=== PATIENT | female | born 1985 | race Caucasian/White ===

== ENCOUNTER 2020-03-17 15:30 | Outpatient (REF) | payer MEDICAID, SELFPAY | END 2020-03-17 15:31 | disposition home or self-care (01) | LOC: HO.LAB 15:30 | PROVIDERS: PCP Internal Medicine; Visit Provider Internal Medicine | DX: Z20.828 Contact with and (suspected) exposure to other viral communicable diseases (principal) | CPT/HCPCS: C9803; U0003 ==

== ENCOUNTER 2020-04-11 14:16 | Emergency (ER) | payer MEDICAID, OTHER, SELFPAY ==
[2020-04-11 14:56] VITALS: BP 150/94; PULSE 73; RESP 18; TEMP 37.2; O2SAT 99; BMI 40.0
--- NOTE | 2020-04-11 16:26 | ED.FALL ---
HPI - Fall General Chief Complaint: Fall Stated Complaint: fall x 1 day - neck pain Time Seen by Provider: 04/11/20 16:26 History of Present Illness HPI Narrative: Patient complains of bilateral shoulder pain, upper back pain and bilateral neck pain after a fall yesterday where she slipped on the wet floor in a store and fell forward, no loss of consciousness no numbness no weakness no fainting no paresthesias no tingling Related Data Previous Rx's Medication Instructions Recorded ibuprofen 600 mg PO Q6H PRN #20 tab 04/11/20 Allergies Allergy/AdvReac Type Severity Reaction Status Date / Time No Known Allergies Allergy Unverified 01/10/20 19:33 [No Known Allergies*] Review of Systems Review of Systems: No dizziness no weakness no headache no loss of consciousness no numbness no weakness no paresthesias no chest pain no abdominal pain no shortness of breath Yes all other systems are reviewed and are negative [facility] Past Medical History Source: nursing notes reviewed Medical History (Updated 04/11/20 @ 16:35 by MEHREEN Brooke) HTN (hypertension) Social History Social History Alcohol intake: unknown Smoking Status: Unknown if ever smoked Use of substances other than those prescribed or required for medical reasons: Unknown Advance Directives: No Advance Directives Information Provided: Yes Physical Exam Vital Signs: Vital Signs: Last Vital Signs Temp 98.9 F 04/11/20 14:56 Pulse 73 04/11/20 14:56 Resp 18 04/11/20 14:56 BP 150/94 H 04/11/20 14:56 Pulse Ox 99 04/11/20 14:56 Body Mass Index 40.0 General appearance relax cooperative no acute distress Normocephalic atraumatic Neck supple nontender The bilateral trapezius muscles have some tenderness Chest wall nontender breath sounds are clear full equal and symmetrical Abdomen soft nontender Extremities is full range of motion x4 there is mild tenderness over both shoulders The back there is bilateral paraspinal thoracic tenderness as well as trapezius tenderness, no focal bony tenderness, skin is normal Skin exam the skin is normal there are no rashes lacerations or wounds Neuro no focal deficit Course Course Course Narrative: Patient after a fall with musculoskeletal pain in bilateral trapezius shoulders and upper back but full range of motion in the shoulders and no evidence of fracture Discharge Plan Discharge Clinical Impression: Muscle strain Patient Disposition: Home, Self-Care Additional Instructions: No sign of any dangerous or serious injury You most likely sprained muscles in the shoulder area and side of her neck Follow with primary doctor or orthopedist if needed Prescriptions: New ibuprofen 600 mg tablet 600 mg PO Q6H PRN (Reason: pain) Qty: 20 RF: 0 Referrals: Adam Tristan MD [Physician] - 10 days (Shoulder pain) Interventions: ED Discharge Assessment Last Done: 04/11/20 16:37 Discharge Date/Time: 04/11/20 16:39
== END 2020-04-11 16:39 | disposition home or self-care (01) ==
PROVIDERS: Emergency Provider Emergency Medicine Emergency Medical Services; PCP Internal Medicine
DX: S46.812A Strain of other muscles, fascia and tendons at shoulder and upper arm level, left arm, initial encounter (principal); S46.811A Strain of other muscles, fascia and tendons at shoulder and upper arm level, right arm, initial encounter; S16.1XXA Strain of muscle, fascia and tendon at neck level, initial encounter; W01.0XXA Fall on same level from slipping, tripping and stumbling without subsequent striking against object, initial encounter; Y93.9 Activity, unspecified; Y92.512 Supermarket, store or market as the place of occurrence of the external cause; Y99.9 Unspecified external cause status
CPT/HCPCS: 99283

== ENCOUNTER 2020-06-11 09:09 | Outpatient (REF) | payer MEDICAID, OTHER, SELFPAY ==
--- NOTE | ~2020-06-11 | XR_ITS ---
EXAMINATION: LEFT SHOULDER LEFT HIP AND LEFT KNEE X-RAY CLINICAL INFORMATION: Pain COMPARISON: None TECHNIQUE: 4 views of the left shoulder, 4 views of the left knee and 2 views of the left hip FINDINGS: Left shoulder: Bone alignment is normal. No fracture or dislocation is seen. The glenohumeral joint is normal. There is mild arthritis at the acromioclavicular joint. Soft tissues are normal. Left knee: Bone alignment is normal. No fracture or dislocation is seen. The joint spaces are normal. There is no joint effusion. Left hip: Bone alignment is normal. No fracture or dislocation is seen. Joint spaces and soft tissues are normal. XR/XR shoulder LT min 2V IMPRESSION: Left shoulder: Mild arthritis at the acromion clavicular joint. Normal left hip and left knee x-ray.
--- NOTE | ~2020-06-11 | XR_ITS ---
EXAMINATION: LEFT SHOULDER LEFT HIP AND LEFT KNEE X-RAY CLINICAL INFORMATION: Pain COMPARISON: None TECHNIQUE: 4 views of the left shoulder, 4 views of the left knee and 2 views of the left hip FINDINGS: Left shoulder: Bone alignment is normal. No fracture or dislocation is seen. The glenohumeral joint is normal. There is mild arthritis at the acromioclavicular joint. Soft tissues are normal. Left knee: Bone alignment is normal. No fracture or dislocation is seen. The joint spaces are normal. There is no joint effusion. Left hip: Bone alignment is normal. No fracture or dislocation is seen. Joint spaces and soft tissues are normal. XR/XR knee LT 4V IMPRESSION: Left shoulder: Mild arthritis at the acromion clavicular joint. Normal left hip and left knee x-ray.
--- NOTE | ~2020-06-11 | XR_ITS ---
EXAMINATION: LEFT SHOULDER LEFT HIP AND LEFT KNEE X-RAY CLINICAL INFORMATION: Pain COMPARISON: None TECHNIQUE: 4 views of the left shoulder, 4 views of the left knee and 2 views of the left hip FINDINGS: Left shoulder: Bone alignment is normal. No fracture or dislocation is seen. The glenohumeral joint is normal. There is mild arthritis at the acromioclavicular joint. Soft tissues are normal. Left knee: Bone alignment is normal. No fracture or dislocation is seen. The joint spaces are normal. There is no joint effusion. Left hip: Bone alignment is normal. No fracture or dislocation is seen. Joint spaces and soft tissues are normal. XR/XR hip LT min 2V IMPRESSION: Left shoulder: Mild arthritis at the acromion clavicular joint. Normal left hip and left knee x-ray.
== END 2020-06-11 09:10 | disposition home or self-care (01) ==
LOC: HO.XRAY 09:09
PROVIDERS: PCP Internal Medicine; Visit Provider Internal Medicine
DX: M25.552 Pain in left hip (principal)
CPT/HCPCS: 73030; 73502; 73564

== ENCOUNTER 2021-04-27 12:36 | Outpatient (REF) | payer MEDICAID, OTHER, SELFPAY ==
[2021-04-27 13:44] LABS: Binax Internal Control QC Valid; Binax Lot number: 9864; Binax Now Covid-19 Ag Positive (Negative)
== END 2021-04-27 12:37 | disposition home or self-care (01) ==
LOC: HO.LAB 12:36
PROVIDERS: Visit Provider Internal Medicine
DX: Z20.822 Contact with and (suspected) exposure to COVID-19 (principal)
CPT/HCPCS: 36415; C9803

== ENCOUNTER 2021-06-29 15:39 | Emergency (ER) | payer MEDICAID, SELFPAY ==
[2021-06-29 15:58] VITALS: BP 136/84; PULSE 110; RESP 19; TEMP 36.6; O2SAT 99; BMI 38.3
--- NOTE | 2021-06-29 23:09 | ED.HA ---
HPI - Headache General Chief Complaint: Headache Stated Complaint: headache Time Seen by Provider: 06/29/21 23:05 Source: patient Mode of arrival: ambulatory Limitations: no limitations History of Present Illness HPI Narrative: Patient with no significant past medical history notice headache for last 2 days with light sensitivity and nausea no shortness of breath no chest pain no fever no chills Related Data Previous Rx's Medication Instructions Recorded ibuprofen 600 mg tablet 600 mg PO Q6H PRN #20 tab 04/11/20 [id number]-isxhpztjbkchn-eoxusdoe 1 cap PO Q6H PRN #20 cap 06/30/21 50 mg-300 mg-40 mg capsule (Fioricet) Allergies Allergy/AdvReac Type Severity Reaction Status Date / Time No Known Allergies Allergy Unverified 01/10/20 19:33 [No Known Allergies*] Review of Systems Review of Systems: Yes all other systems are reviewed and are negative [facility] Past Medical History Medical History HTN (hypertension) Social History Social History Alcohol intake: unknown Advance Directives: No Advance Directives Information Provided: Yes Physical Exam Vital Signs: Vital Signs: Last Vital Signs Temp 99.1 F 06/30/21 01:11 Pulse 77 06/30/21 01:11 Resp 15 06/30/21 01:11 BP 128/65 06/30/21 01:11 Pulse Ox 98 06/30/21 01:11 BMI result Body Mass Index 38.3 Appearance: Alert. Oriented X3. No acute distress. Eyes: PERRLA, No Nystagmus sensitive to light ENT: Pharynx normal. Oral Mucosa moist Neck: Normal inspection. Neck supple. CVS: Normal heart rate and rhythm. Pulses normal. Respiratory: No respiratory distress. Equal air entry bilateral, Abdomen: Soft and nontender. Bowel sounds are present, Skin: Skin warm and dry. Normal skin color. Normal skin turgor. Extremities: No lower extremity edema. No calf tenderness Neuro: Oriented X 3. No motor deficit. No sensory deficit.No cerebellar signs , cranial nerves II-XII intact MDM - Headache MDM Narrative Medical decision making narrative: Patient feeling better after Imitrex but still having the headache will give Toradol and discharged Discharge Plan Discharge Clinical Impression: Migraine Patient Disposition: Home, Self-Care Instructions: Migraine Headache (ED) Additional Instructions: Rest at home medication as advised for headaches follow up with PCP if not better Prescriptions: New btwhgjwcti-pgxbzsuomvvbf-kwzt [Fioricet] 50-300-40 mg capsule 1 cap PO Q6H PRN (Reason: Headache) Qty: 20 0RF No Action ibuprofen 600 mg tablet 600 mg PO Q6H PRN (Reason: pain) Qty: 20 0RF
[2021-06-29] MEDS: SUMAtriptan succinate 6 MG/0.5 ML VIAL SUBCUT (23:45)
[2021-06-29] MEDS: Ondansetron ODT 4 MG TAB.RAPDIS TRANSLINGU (23:45)
[2021-06-30 00:04] VITALS: BP 140/73; PULSE 84; RESP 12; O2SAT 98
[2021-06-30 01:11] VITALS: BP 128/65; PULSE 77; RESP 15; TEMP 37.3; O2SAT 98
[2021-06-30] MEDS: Ketorolac Tromethamine 60 MG/2 ML VIAL IM (01:12)
== END 2021-06-30 01:25 | disposition home or self-care (01) ==
PROVIDERS: Emergency Provider Internal Medicine; PCP Internal Medicine
DX: G43.909 Migraine, unspecified, not intractable, without status migrainosus (principal); I10 Essential (primary) hypertension
CPT/HCPCS: 96372; 99284; J1885; J3030

== ENCOUNTER 2022-12-29 09:46 | Outpatient (REF) | payer MEDICAID, SELFPAY ==
[2022-12-29 11:45] LABS: MANUAL DIFF FLAG NO
[2022-12-29 11:56] LABS: Basophils Percent Auto 0.3 % (0-2); Eosinophils Absolute Auto 0.1 X10*3/uL (0.0-0.4); Eosinophils Percent Auto 0.8 % (0-4); Hematocrit 42.9 % (37.0-47.0); Hemoglobin 13.6 g/dl (12.0-16.0); Imm Gran Abs Auto 0.01 X10*3/uL (0.00-0.03); Imm Gran Pct Auto 0.1 % (0.0-0.4); Lymphocytes Absolute Auto 1.8 X10*3/uL (1.2-4.9); Lymphocytes Percent Auto 22.4 % (20-40); Mean Corpuscular HGB Conc 31.7 g/dl (31.0-35.0); Mean Corpuscular Hemoglobin 25.9 pg (27.0-33.0); Mean Corpuscular Volume 81.7 fL (80.0-98.0); Mean Platelet Volume 10.3 fL (9.4-12.3); Monocytes Absolute Auto 0.4 X10*3/uL (0.1-1.2); Monocytes Percent Auto 5.5 % (2-11); Neutrophils Absolute Auto 5.5 x10*3/uL (2.0-8.3); Neutrophils Percent Auto 70.9 % (45-73); Platelet Count 362 X10*3/uL (160-400); Red Blood Count 5.25 X10*6/uL (4.20-5.50); Red Cell Distribution Width 17.6 % (11.0-16.0); White Blood Count 7.8 X10*3/uL (4.8-10.8)
[2022-12-29 12:25] LABS: Iron 54 mcg/dL (30-160); Percent Iron Saturation 16 % (15-50); Total Iron Binding Capacity 329 mcg/dL (228-428); Unsaturated Iron Binding 275 ug/dL
== END 2022-12-29 09:47 | disposition home or self-care (01) ==
LOC: HO.HHCL 09:46
PROVIDERS: Visit Provider Internal Medicine
DX: N92.1 Excessive and frequent menstruation with irregular cycle (principal)
CPT/HCPCS: 36415; 83540; 85025

== ENCOUNTER 2023-03-25 15:02 | Outpatient (REF) | payer MEDICAID, OTHER, SELFPAY ==
[2023-03-25 16:10] LABS: MANUAL DIFF FLAG NO
[2023-03-25 16:15] LABS: Basophils Percent Auto 0.3 % (0-2); Eosinophils Absolute Auto 0.1 X10*3/uL (0.0-0.4); Eosinophils Percent Auto 0.6 % (0-4); Hematocrit 41.5 % (37.0-47.0); Hemoglobin 13.6 g/dl (12.0-16.0); Imm Gran Abs Auto 0.03 X10*3/uL (0.00-0.03); Imm Gran Pct Auto 0.3 % (0.0-0.4); Lymphocytes Absolute Auto 2.4 X10*3/uL (1.2-4.9); Lymphocytes Percent Auto 23.4 % (20-40); Mean Corpuscular HGB Conc 32.8 g/dl (31.0-35.0); Mean Corpuscular Hemoglobin 27.9 pg (27.0-33.0); Mean Corpuscular Volume 85.2 fL (80.0-98.0); Monocytes Absolute Auto 0.6 X10*3/uL (0.1-1.2); Neutrophils Absolute Auto 7.2 x10*3/uL (2.0-8.3); Neutrophils Percent Auto 69.4 % (45-73); Platelet Count 342 X10*3/uL (160-400); Red Blood Count 4.87 X10*6/uL (4.20-5.50); Red Cell Distribution Width 13.9 % (11.0-16.0); White Blood Count 10.4 X10*3/uL (4.8-10.8)
[2023-03-25 16:48] LABS: C Reactive Protein 1.59 mg/dL (< or = 0.50)
[2023-03-25 17:06] LABS: TSH reflex Free T4 1.39 uIU/mL (0.32-4.0)
== END 2023-03-25 15:03 | disposition home or self-care (01) ==
LOC: HO.HHCL 15:02
PROVIDERS: Visit Provider Emergency Medicine
DX: R22.1 Localized swelling, mass and lump, neck (principal)
CPT/HCPCS: 36415; 84443; 85025; 86140

== ENCOUNTER 2023-04-21 13:47 | Outpatient (REF) | payer MEDICAID, OTHER, SELFPAY ==
--- NOTE | ~2023-04-21 | US_ITS ---
EXAMINATION: US SOFT TISSUE NECK CLINICAL INFORMATION: Neck mass. COMPARISON: None available. TECHNIQUE: Ultrasound of the right neck soft tissues is performed with high- frequency joel-scale imaging and color Doppler. FINDINGS: Targeted ultrasound images were obtained by the etl analyst of the area of concern as indicated by the patient in the upper right neck/submandibular region. The right submandibular gland is unremarkable in echogenicity. There is a 1.3 x 0.7 x 0.6 cm lymph node with echogenic hilum in the area indicated by the patient in the upper right neck. There is a 0.8 x 0.5 x 0.6 cm atypical lymph node with cortical thickening in the area indicated by the patient in the upper right neck. Radiologist was not in attendance. Images were later provided for interpretation. US/US soft tiss head and/or neck IMPRESSION: 1. A 1.3 x 0.7 x 0.6 cm lymph node with echogenic hilum in the area of concern as indicated by the patient in the upper right neck. 2. A 0.8 x 0.5 x 0.6 cm atypical lymph node with cortical thickening in the area indicated by the patient in the upper right neck. 3. Correlation with clinical exam recommended to determine further management including possible additional imaging with contrast-enhanced CT scan of the neck. Recommend follow-up ultrasound in 3 months.
== END 2023-04-21 13:48 | disposition home or self-care (01) ==
LOC: HO.US 13:47
PROVIDERS: PCP Internal Medicine; Visit Provider Emergency Medicine
DX: R22.1 Localized swelling, mass and lump, neck (principal)
CPT/HCPCS: 76536

== ENCOUNTER 2023-04-28 11:19 | Outpatient (REF) | payer MEDICAID, OTHER, SELFPAY | END 2023-04-28 11:20 | disposition home or self-care (01) | LOC: HO.HHCL 11:19 | PROVIDERS: Visit Provider Emergency Medicine | DX: R59.0 Localized enlarged lymph nodes (principal) | CPT/HCPCS: 36415; 80048 ==

== ENCOUNTER 2023-05-11 09:51 | Outpatient (AMB) | payer SELFPAY ==
--- NOTE | 2023-05-11 10:01 | MHC.OFFVIS ---
Intake Vital Signs 05/11/23 10:06 Height 4 ft 11 in Weight 222 lb BMI 44.8 BP 123/72 Blood Pressure Location Rt brachial Position Sitting Pulse 62 Intake Visit Reasons: cervical lymphadenopathy Intake Note: This patient presents for an assessment for cervical lymphadenopathy. Patient c/o; reports dry throat when wakes up, reports no dysphagia, reports sore throat, reports radiates towards ear. Web Designer Required: Yes Web Designer Language: Infant And Toddler Teacher Name: Katia Information Interpreted: non-clinical & clinical Accompanied by: Daughter Allergies No Known Allergies [No Known Allergies*] Allergy (Unverified 05/11/23 10:06) Medication List - Last Reconciled 05/11/23 by Yannick Melendez MD ypeuvrzwoo-yzzvzhmuxrorf-qsbm 50-300-40 mg (Fioricet) 1 cap PO Q6H PRN cholecalciferol (vitamin D3) (Vitamin D3) 25 mcg PO DAILY ibuprofen 600 mg PO Q6H PRN metformin 500 mg PO HPI cervical lymphadenopathy HPI Details [age] year old female referred for lymphadenopathy of the neck. She actually says that she had a pimple on the right side of the neck several months ago which seemed to have increased but has since resolved. She feels that the pimple had cause pain on the neck radiating to her right jaw as well She had an ultrasound ordered by her primary care physician which showed a 1.3 x 0.7 x 0.6 cm lymph node on the upright neck, and a 0.8 x 0.5 x 0.6 cm on the upper right neck as well. She says that she did not really feel a lymph node on this area She denies any dental caries although she says she had a lot of teeth removed because of cavities in the past. [facility] Medical History (Updated 05/11/23 @ 10:47 by Yannick Melendez MD) Enlarged lymph node in neck HTN (hypertension) Surgical History H/O section Social History Alcohol intake: never Patient Tobacco Use Status: Never used Tobacco Review of Systems Const Denies chills and Denies fever(s) Card Denies chest pain, Denies dyspnea and Denies dyspnea on exertion Resp Denies cough, Denies dyspnea and Denies dyspnea on exertion GI Denies hematochezia and Denies change in bowel habits Denies hematuria Musc Denies back pain and Denies limited range of motion Neuro Denies focal weakness and Denies convulsions Psych Denies depression and Denies mood swings Physical Exam Vital Signs: Last Vital Signs Pulse 62 05/11/23 10:06 BP 123/72 05/11/23 10:06 BMI result Body Mass Index 44.8 Const General: comfortable and no acute distress Orientation/consciousness: patient oriented x3 HEENT Other: No oral mucosal lesions, no signs of any dental infection Neck Other: I am unable to feel any enlarged lymph node at this time Neck: Yes no lymphadenopathy Resp Auscultation: clear to auscultation bilaterally Cardio Rhythm: regular rhythm GI Palpation (GI): Soft to palpation, nontender and no guarding Neuro General: patient oriented x3 Assessment & Plan Assessment & Plan (1) Enlarged lymph node in neck: Code(s): R59.0 - Localized enlarged lymph nodes Plan: She has this enlarged lymph node on the neck seen on ultrasound as described above. This is not palpable at this time. She does not have any signs of any oral lesion. She denies any fever or night sweats or any systemic symptoms I will plan on a follow-up ultrasound in about 3 months from the last 1 to see if this lymphadenopathy persists. She understands the plan well and is comfortable with this. Coding Level of Care Code New Pt Level 3 (75052) Diagnoses Enlarged lymph node in neck R59.0
[2023-05-11 10:06] VITALS: BP 123/72; PULSE 62; BMI 44.8
== END 2023-05-11 10:53 | disposition home or self-care (01) ==
PROVIDERS: PCP Internal Medicine; Visit Provider Surgery
DX: R59.0 Localized enlarged lymph nodes (principal)
CPT/HCPCS: 99203

== ENCOUNTER → 2023-05-11 09:51 | Outpatient (BNVA) | payer MEDICAID, OTHER, SELFPAY | PROVIDERS: PCP Internal Medicine; Visit Provider Surgery | DX: R59.0 Localized enlarged lymph nodes (principal) | CPT/HCPCS: 99202 ==

== ENCOUNTER 2023-06-24 10:15 | Outpatient (REF) | payer SELFPAY ==
[2023-06-24 11:27] LABS: MANUAL DIFF FLAG NO
[2023-06-24 11:42] LABS: Basophils Percent Auto 0.3 % (0-2); Eosinophils Absolute Auto 0.1 X10*3/uL (0.0-0.4); Eosinophils Percent Auto 0.7 % (0-4); Hematocrit 41.1 % (37.0-47.0); Hemoglobin 13.5 g/dl (12.0-16.0); Imm Gran Abs Auto 0.03 X10*3/uL (0.00-0.03); Imm Gran Pct Auto 0.4 % (0.0-0.4); Lymphocytes Absolute Auto 1.6 X10*3/uL (1.2-4.9); Lymphocytes Percent Auto 23.4 % (20-40); Mean Corpuscular HGB Conc 32.8 g/dl (31.0-35.0); Mean Corpuscular Hemoglobin 27.6 pg (27.0-33.0); Mean Corpuscular Volume 83.9 fL (80.0-98.0); Mean Platelet Volume 9.6 fL (9.4-12.3); Monocytes Absolute Auto 0.5 X10*3/uL (0.1-1.2); Monocytes Percent Auto 6.9 % (2-11); Neutrophils Absolute Auto 4.8 x10*3/uL (2.0-8.3); Neutrophils Percent Auto 68.3 % (45-73); Platelet Count 333 X10*3/uL (160-400); Red Cell Distribution Width 13.2 % (11.0-16.0)
[2023-06-24 12:00] LABS: Anion Gap 12 (12-20); Blood Urea Nitrogen 11 mg/dL (9-16); Calcium 9.7 mg/dL (8.4-10.2); Carbon Dioxide 25 mmol/L (22-29); Chloride 107 mmol/L (96-108); Estimated Glomerular Filt Rate > 60; Glucose Random 104 mg/dL (60-115); Sodium 140 mmol/L (135-145)
== END 2023-06-24 10:16 | disposition home or self-care (01) ==
LOC: HO.HHCL 10:15
PROVIDERS: Visit Provider Internal Medicine
DX: D50.8 Other iron deficiency anemias (principal)
CPT/HCPCS: 36415; 80048; 85025

== ENCOUNTER 2023-07-22 15:11 | Outpatient (REF) | payer MEDICAID, OTHER, SELFPAY ==
--- NOTE | ~2023-07-22 | US_ITS ---
EXAMINATION: US SOFT TISSUE NECK CLINICAL INFORMATION: Persistent lymphadenopathy cervical anterior area. COMPARISON: Ultrasound soft tissue neck 04/21/2023. TECHNIQUE: Linear transducer grayscale and color Doppler examination of the right neck. FINDINGS: Multiple right submandibular normal-appearing lymph nodes are seen, largest measures 0.8 x 0.4 x 0.8 cm. Visualized submandibular gland is unremarkable in appearance. US/US soft tiss head and/or neck IMPRESSION: Normal-appearing right submandibular lymph nodes.
== END 2023-07-22 15:12 | disposition home or self-care (01) ==
LOC: HO.US 15:11
PROVIDERS: PCP Internal Medicine; Visit Provider Internal Medicine
DX: R59.1 Generalized enlarged lymph nodes (principal)
CPT/HCPCS: 76536

== ENCOUNTER 2023-07-28 08:46 | Outpatient (AMB) | payer SELFPAY ==
--- NOTE | 2023-07-28 09:05 | MHC.OFFVIS ---
Intake Vital Signs 07/28/23 09:09 Height 4 ft 11 in Weight 227 lb 2 oz BMI 45.9 BP 135/73 Blood Pressure Location Lt brachial Position Sitting Pulse 62 Intake Visit Reasons: u/s results, following cervical lymphadenopathy Intake Note: This patient presents for US results for cervical lymphadenopathy. Pt c/o; admit to increase pain in the cervical area Principal Law Clerk Required: Yes Principal Law Clerk Language: Sound Technician Name: Brandi CORONADO Information Interpreted: non-clinical & clinical Accompanied by: Daughter Allergies No Known Allergies [No Known Allergies*] Allergy (Unverified 07/28/23 09:08) Medication List - Last Reconciled 07/28/23 by Yannick Melendez MD vxvhfnwqny-nulmdhqevtadf-arna 50-300-40 mg (Fioricet) 1 cap PO Q6H PRN cholecalciferol (vitamin D3) (Vitamin D3) 25 mcg PO DAILY ibuprofen 600 mg PO Q6H PRN metformin 500 mg PO HPI u/s results, following cervical lymphadenopathy HPI Details She is here for follow-up for cervical lymphadenopathy. She had a neck ultrasound last March showing this slightly enlarged lymph nodes on both sides of the neck She currently denies any palpable neck mass or lymph node. She does state that she seems to have pain with swallowing. [facility] Medical History (Updated 07/28/23 @ 09:23 by Yannick Melendez MD) Morbid obesity Enlarged lymph node in neck HTN (hypertension) Surgical History H/O section Social History Alcohol intake: never Patient Tobacco Use Status: Never used Tobacco Review of Systems Const Denies chills and Denies fever(s) Card Denies chest pain, Denies dyspnea and Denies dyspnea on exertion Resp Denies cough, Denies dyspnea and Denies dyspnea on exertion GI Denies hematochezia and Denies change in bowel habits Denies hematuria Musc Denies back pain and Denies limited range of motion Neuro Denies focal weakness and Denies convulsions Psych Denies depression and Denies mood swings Physical Exam Vital Signs: Last Vital Signs Pulse 62 07/28/23 09:09 BP 135/73 07/28/23 09:09 BMI result Body Mass Index 45.9 Const Other: Morbidly obese General: comfortable and no acute distress Orientation/consciousness: patient oriented x3 HEENT Other: No palpable lymph nodes on the neck, no significant tenderness Neck Neck: Yes no lymphadenopathy Resp Auscultation: clear to auscultation bilaterally Cardio Rhythm: regular rhythm GI Palpation (GI): Soft to palpation, nontender and no guarding Neuro General: patient oriented x3 Assessment & Plan Assessment & Plan (1) Enlarged lymph node in neck: Code(s): R59.0 - Localized enlarged lymph nodes Plan: I reviewed her follow-up neck ultrasound done last week. This shows normal looking lymph nodes. She does not seem to need any biopsy of the lymph node at this time She does state that she has pain in the throat with swallowing. I would recommend seeing an ENT specialist for this down the line if this persists. She otherwise can follow up on a p.r.n. basis. Coding Level of Care Code Est Pt Level 2 (09439) Diagnoses Enlarged lymph node in neck R59.0
[2023-07-28 09:09] VITALS: BP 135/73; PULSE 62; BMI 45.9
== END 2023-07-28 09:22 | disposition home or self-care (01) ==
PROVIDERS: PCP Internal Medicine; Visit Provider Surgery
DX: R59.0 Localized enlarged lymph nodes (principal)
CPT/HCPCS: 99212

== ENCOUNTER → 2023-07-28 08:46 | Outpatient (BNVA) | payer SELFPAY | PROVIDERS: PCP Internal Medicine; Visit Provider Surgery | DX: R59.0 Localized enlarged lymph nodes (principal) | CPT/HCPCS: 99212 ==

== ENCOUNTER 2023-09-27 10:36 | Outpatient (REF) | payer MEDICAID, OTHER, SELFPAY ==
[2023-09-27 12:09] LABS: MANUAL DIFF FLAG NO
[2023-09-27 12:18] LABS: Basophils Percent Auto 0.2 % (0-2); Eosinophils Percent Auto 0.3 % (0-4); Hematocrit 40.3 % (37.0-47.0); Hemoglobin 13.3 g/dl (12.0-16.0); Imm Gran Abs Auto 0.04 X10*3/uL (0.00-0.03); Imm Gran Pct Auto 0.4 % (0.0-0.4); Lymphocytes Percent Auto 22.9 % (20-40); Mean Corpuscular Hemoglobin 27.4 pg (27.0-33.0); Mean Corpuscular Volume 83.1 fL (80.0-98.0); Monocytes Absolute Auto 0.5 X10*3/uL (0.1-1.2); Monocytes Percent Auto 5.9 % (2-11); Neutrophils Absolute Auto 6.3 x10*3/uL (2.0-8.3); Neutrophils Percent Auto 70.3 % (45-73); Platelet Count 336 X10*3/uL (160-400); Red Blood Count 4.85 X10*6/uL (4.20-5.50); Red Cell Distribution Width 13.9 % (11.0-16.0); White Blood Count 8.9 X10*3/uL (4.8-10.8)
[2023-09-27 13:08] LABS: Anion Gap 15 (12-20); Blood Urea Nitrogen 12 mg/dL (9-16); Calcium 9.9 mg/dL (8.4-10.2); Carbon Dioxide 24 mmol/L (22-29); Chloride 104 mmol/L (96-108); Cholesterol 284 mg/dL (<200); Estimated Glomerular Filt Rate > 60; Glucose Random 96 mg/dL (60-115); HDL Cholesterol 44 mg/dL (>40); LDL Cholesterol Calculated 195 mg/dL (<100); Potassium 3.8 mmol/L (3.3-5.1); Sodium 139 mmol/L (135-145); Triglycerides 227 mg/dL (<150)
== END 2023-09-27 10:37 | disposition home or self-care (01) ==
LOC: HO.HHCL 10:36
PROVIDERS: Visit Provider Internal Medicine
DX: Z13.6 Encounter for screening for cardiovascular disorders (principal); D50.8 Other iron deficiency anemias; R73.03 Prediabetes
CPT/HCPCS: 36415; 80048; 80061; 85025

== ENCOUNTER 2024-06-25 09:06 | Outpatient (REF) | payer MEDICAID, OTHER, SELFPAY ==
--- NOTE | ~2024-06-25 | MM_ITS ---
EXAMINATION: MM SCREENING DIGITAL BREAST TOMOSYNTHESIS, BILATERAL CLINICAL INFORMATION: Screening. Asymptomatic. COMPARISON: Mammography: Baseline. TECHNIQUE: Digital breast mammography with tomosynthesis is performed in both the craniocaudal and mediolateral oblique views along with computer-aided detection (CAD). FINDINGS: The breasts are heterogeneously dense, which may obscure small masses (ACR BI-RADS breast composition Category c). Left: There are no significant masses, abnormal calcifications, or other abnormalities. Right: Asymmetry with questioned distortion medial breast posterior depth on CC view. No suspicious calcifications or other abnormal findings. MM/MM tomosynthesis screening BI IMPRESSION: Additional imaging is recommended ASSESSMENT: BI-RADS BI-RADS 0 - Incomplete: Needs additional Imaging. RECOMMENDATION: 1. Additional views of the right breast. 2. Targeted ultrasound if warranted after review of the additional views. 3. Radiology department staff will contact the patient for additional imaging. Additional Imaging required This examination should not preclude the clinical evaluation of a suspicious palpable abnormality. This patient's information was entered into a reminder system with a target due date for their next mammogram. Electronically signed by: Krystal May DO 06/26/2024 04:09 PM ANNAMARIA
--- OUTSIDE RECORDS SUMMARY | 2024-06-25 09:47 | XMS_ITS | Encounter Summary ---
Author Organization [employer] [facility] Address [address] [place] [address] Care Team Providers Care Keymodule Assembly Supervisor Name Role Phone Macarena Haider MD Primary Care Provide r Encounter Details Date Type Department Care Team (Latest Contact Info) Description 10/03/2018 Abstract [facility] CONVERSIONS Dental, Provider, DDS Social History Tobacco Use Types Packs/Day Years Used Date Smoking Tobacco: Never Assessed Comments Unknown Sex and Gender Information Value Date Recorded Sex Assigned at Female 02/22/2022 10:34 AM EDT Legal Sex Female 10:34 AM EDT Gender Identity Female 02/22/2022 10:34 AM EDT Sexual Orientation Straight 02/22/2022 10 :34 AM EDT documented as of this encounter Plan of Treatment Upcoming Encounters Date Type Department Care Team (Late st Contact Info) Description 07/05/2024 11:30 AM EDT Telemedicine [facility] MEDICINE [address] [place] [address] Macarena Haider MD [address] [place] [address] documented as of this encounter Visit Diagnoses Not on filedocumented in this encounter Care Teams Keymodule Assembly Supervisor Relationship Specialty Start Date End Date Macarena Haider MD [address] [place] [address] PCP - General Family Medicine 02/10/18 documented as of this encounter
--- OUTSIDE RECORDS SUMMARY | 2024-06-25 09:47 | XMS_ITS | Clinical Summary ---
Author Organization [facility] Address [address] [id number] Care Team Providers Care Linux Unix Administrator Name Role Phone Macarena Haider MD Primary Care Provider Allergies No known active allergies Medications omeprazole (PriLOSEC) 40 mg capsule Take 1 capsule (40 mg total) by mouth once a day. 90 capsule 01/16/2024 Active famotidine (PEPCID) 20 mg tablet Take 1 tablet (20 mg total) by mouth 2 times a day. 180 tablet 01/16/2024 Active Social History Tobacco Use Types Packs/Day Years Used Date Smoking Tobacco: Never Assessed Comments Unknown Sex and Gender Information Value Date Recorded Sex Assigned at Not on file Legal Sex Female 3:47 PM EST Gender Identity Not on file Sexual Orientation Not on file Plan of Treatment Health Maintenance Due Date Last Done Comments Cervical Cancer Screening 1984 HIV Screening 1984 HPV and Pap Smear 1984 Pap Smear 1984 Varicella Vaccines (1 of 2 - 13+ 2-dose series) 01/01/1997 Hepatitis B Vaccines (1 of 3 - 19+ 3-dose series) 01/01/2003 DTaP,Tdap,and Td Vaccines (1 - Tdap) 01/01/2006 COVID-19 Vaccine (2 - 2023-2 5 season) 2023 10/28/2021 Influenza Vaccine (#1) 2023 02/10/2018 Alcohol/Substance Use Screening 04/25/2024 RSV Vaccine (60+ years old a nd patients) (1 - 1-dose 75+ series) 01/01/2059 Pneumococcal Vaccine: Pediat bekah (0-5 Years) and At-Risk Patients (6-50 Years) Aged Out No longer eligible b ased on patient's age to complete this topic Insurance [facility] HSNO/FREE CARE Care Teams Linux Unix Administrator Relationship Specialty Start Date End Date Macarena Haider MD [address] [place] [phone] PCP - General Internal Medicine 09/30/23
--- OUTSIDE RECORDS SUMMARY | 2024-06-25 09:47 | XMS_ITS | Referral Summary ---
Author Organization [facility] Address [address] [place] [id number] Care Team Providers Care Induction Furnace Operator Name Role Phone Macarena Haider MD Primary [...] Orientation Not on file Plan of Treatment Not on file Insurance [facility] HS/FREE CARE Care Teams Induction Furnace Operator Relationship Specialty Start Date End Date Macarena Haider MD [address] [place] [phone] PCP - General Internal Medicine 09/30/23
--- OUTSIDE RECORDS SUMMARY | 2024-06-25 09:47 | XMS_ITS | Encounter Summary ---
Author Organization [employer] Address [address] [place] [address] Care Team Providers Care Terrazzo Worker Helper Name Role Phone Macarena Haider MD Primary Care Provide r Encounter Details Date Type Department Care Team (Late st Contact Info) Description 02/29/2024 Orders Only [facility] [address] [place] [address] ProviderReyna MD Social History Tobacco Use Types Packs/Day Years Used Date Smoking Tobacco: Never Passive Smoke Exposure: Never Smokeless Tobacco: Never Alcohol Use Standard Drinks/Week Comments Never 0 (1 standard drink = 0.6 oz pur e alcohol) Depression Answer Date Recorded Patient Health Questionnaire-9 Score 0 12/29/2022 Housing Stability Answer Date Recorded What is your housing situation today? I have travismarianne anderson 02/07/[address] you li ve. Do you have problems with any of the following? None of the above 02/07/2023 Food Insecurity Answer Date Recorded Within the past 12 months, y ou worried that your food would run out before you got money to buy more: Never True 02/07/2023 Within the past 12 months,th e food you bought just didn't last and you didn't have enough money to get more: Never True Transportation Answer Date Recorded In the past 12 months, has l ack of transportation kept you from medical appts, meetings, work or from getting things needed for daily living? No 02/07/2023 Utilities Answer Date Recorded In the past 12 months, has t he electric, gas, oil or water company threatened to shut off services in your home? No 02/07/2023 Depression Answer Date Recorded Patient Health Questionnaire-2 Score 0 12/29/2022 Comments Unknown Sex and Gender Information Value Date Recorded Sex Assigned at Female 02/22/2022 10:34 AM EDT Legal Sex Female 10:34 AM EDT Gender Identity Female 02/22/2022 10:34 AM EDT Sexual Orientation Straight 02/22/2022 10 :34 AM EDT documented as of this encounter Plan of Treatment Upcoming Encounters Date Type Department Care Team (Late st Contact Info) Description 07/05/2024 11:30 AM EDT Telemedicine [facility] MEDICINE [address] [place] [address] Macarena Haider MD [address] [place] [address] documented as of this encounter Procedures Procedure Name Priority Date/Time Associated Diagnosis Comments [place] ESOPHAGUS BARIUM SWALLOW WITH VIDEO AND SPEECH Routine 02/27/2024 1:53 PM EST documented in this encounter Results * FL Esophagus Barium Swallow with Video and Speech (02/27/2024 1:53 PM EST) Anatomical Region Laterality Modality Head, Neck Radiographic Samreen ging us Historical Provider MD JARA FLUOROSCOPY PROCEDURE S Final Result documented in this encounter Visit Diagnoses Not on filedocumented in this encounter Additional Health Concerns Assessment Noted Time PHQ-9 Depression Total Score: 0 12/30/19 23 9:08 AM EDT documented as of this encounter Care Teams Terrazzo Worker Helper Relationship Specialty Start Date End Date Macarena Haider MD [address] [place] [address] PCP - General Family Medicine 02/10/18 documented as of this encounter
--- OUTSIDE RECORDS SUMMARY | 2024-06-25 09:48 | XMS_ITS | Encounter Summary ---
Author Organization [employer] Address [address] [facility] [address] 7[address] [place] [address] Care Team Providers Care Optometric Technician Name Role Phone Macarena Haider MD Primary Care Provide r Encounter Details Date Type Department Care Team (Late Contact Info) Description 12/23/2022 Orders Only [facility] [address] [place], [place] [phone] Nancy Morillo LPN Social History Tobacco Use Types Packs/Day Years Used Date Smoking Tobacco: Never Smokeless Tobacco: Never Alcohol Use Standard Drinks/Week Comments Never 0 (1 standard drink = 0.6 oz pur e alcohol) Comments Unknown Sex and Gender Information Value Date Recorded Sex Assigned at Female 02/22/2022 10:34 AM EDT Legal Sex Female 10:34 AM EDT Gender Identity Female 02/22/2022 10:34 AM EDT Sexual Orientation Straight 02/22/2022 10 :34 AM EDT documented as of this encounter Plan of Treatment Upcoming Encounters Date Type Department Care Team (Late st Contact Info) Description 07/05/2024 11:30 AM EDT Telemedicine [facility] [address] [place] [address] Macarena Haider MD [address] [place], [place] [phone] documented as of this encounter Visit Diagnoses Not on filedocumented in this encounter Care Teams Optometric Technician Relationship Specialty Start Date End Date Macarena Haider MD [address] [place] [phone] PCP - General Family Medicine 02/10/18 documented as of this encounter
--- OUTSIDE RECORDS SUMMARY | 2024-06-25 09:48 | XMS_ITS | Clinical Summary ---
Author Organization [employer] Address [address] 7[address] [place] [address] Care Team Providers Care Staff Veterinarian Name Role Phone Macarena Haider MD Primary Care Provide r Allergies No known active allergies Medications atorvastatin (Lipitor) 20 MG tablet Take 1 tablet by mouth at bed time. 9 Active FREESTYLE LITE test strip USE DIRECTED TO TEST BLOOD SUGAR TWICE DAILY 100 strip 11 4 Active TRUEplus Lancets 33G misc USE DIRECTED TO TEST BLOOD SUGAR TWICE DAILY 100 each 4 Active metFORMIN XR (Glucophage-XR) 500 MG 24 hr tabletIndication s:Prediabetes TAKE 1 TABLET BY MOUTH EVERY EVENING WITH DINNER DO NOT BREAK, CRUSH, DISSOLVE OR CHEW 90 tablet 2 4 Active Vitamin D High Potency 25 MCG (1000 UT) capsule TAKE 1 CAPSULE BY MOUTH EVERY DAY 90 capsule 2 4 Active Alcohol Swabs (Alcohol Prep) 70 % pads 1 each 2 times daily. USE TWICE DAILY 100 each 11 4 Active ferrous sulfate (FeroSul) 325 (65 Fe) MG tabletIndication s:Microcytic anemia TAKE 1 TABLET BY MOUTH EVERY DAY WITH BREAKFAST. DO NOT BREAK, CRUSH, DISSOLVE OR CHEW. 90 tablet 1 4 Active ibuprofen 800 MG tabletIndication s:Chronic sore throat,Chronic bilateral low back pain with left-sided sciatica TAKE 1 TABLET BY MOUTH THREE TIMES DAILY WITH FOOD 60 tablet 1 4 Active phentermine 37.5 MG capsuleIndicatio ns:Class 3 severe obesity due to excess calories with serious comorbidity and body mass index (BMI) of 45.0 to 49.9 in adult (CMS/HCC) Take 1 capsule (37.5 mg) by mouth before breakfast. 30 capsule Active Active Problems Problem Noted Date Diagnosed Date Encounter for screening mamm ogram for malignant neoplasm of breast 05/17/2024 Allergies 05/17/2024 Precordial pain 05/17/2024 Class 3 severe obesity due t o excess calories with serious comorbidity and body mass index (BMI) of 45.0 to 49.9 in adult 05/17/2024 Assessment & Plan (05/17/2024 11:58 AM EST): Extensive counseling done about healthy diet and exercise I will start patient on phentermine and follow-up with her in 4 to 6 weeks, side effects were reviewed with the patient Scalp lesion 05/17/2024 Newly diagnosed diabetes 05/17/2024 Assessment & Plan (05/17/2024 11:59 AM EST): Today her A1c is 6.5, which means newly diagnosed diabetes Counseling done today we will concentrate and weight loss and repeat A1c in 3 months Chronic sore throat 09/27/2023 Assessment & Plan (09/27/2023 12:12 PM EDT): ENT referral Chronic bilateral low back pain with left-sided sciatica 09/27/2023 Assessment & Plan (09/27/2023 12:12 PM EDT): Heat on affected area Gentle stretching Declines for now PT Ibuprofen PRN Lymphadenopathy of head and neck 04/28/2023 Assessment & Plan (06/24/2023 10:07 AM EST): Persistent painful lymphadenopathy I will repeat US and I ask her to call surgery office for a f/u appointment Assessment & Plan (04/28/2023 11:12 AM EST): US of neck results was explained to patient BMP and CT of neck and head with contrast ordered, I explain patient this will be done and also she is also referred to surgery to evaluate for possible biopsy Iron (Fe) deficiency anemia 12/29/2022 Assessment & Plan (09/27/2023 12:12 PM EDT): CBC will be monitor Assessment & Plan (12/29/2022 11:08 AM EDT): Continue with iron supplement CBC will be check Patient will be refer to UTILIZATION COORDINATOR Metrorrhagia 12/29/2022 Vitamin D deficiency 12/24/2022 Chronic left shoulder pain 12/24/2022 Mixed anxiety and depressive disorder 05/12/2022 Dyslipidemia 05/12/2022 Prediabetes 05/12/2022 Assessment & Plan (09/27/2023 12:11 PM EDT): Today extensive discussion was done about life style modifications I advise healthy diet (low calorie) and cardiovascular exercise Assessment & Plan (04/28/2023 11:10 AM EST): Today extensive discussion was done about life style modifications I advise healthy diet (low calorie) and cardiovascular exercise Assessment & Plan (12/29/2022 11:09 AM EDT): Today extensive discussion was done about life style modifications I advise healthy diet (low calorie) and cardiovascular exercise C/w metformin 500mg ER daily Assessment & Plan (09/29/2022 4:27 PM EDT): Today extensive discussion was done about life style modifications I advise healthy diet (low calorie) and cardiovascular exercise I changed her metformin to XR RTC 3 months Encounters Date Type Department Care Team Description 05/18/2024 Telephone [facility] [address] [place] [phone] Macarena Haider MD Prior Authorization ( MEHREEN Request: Phentermine) 05/17/2024 10:00 AM EST Office Visit [facility] [address] [place] [phone] Macarena Haider MD Encounter for screening mammogram for malignant neoplasm of breast (Primary Dx); Allergy, initial encounter; Precordial pain; Class 3 severe obesity due to excess calories with serious comorbidity and body mass index (BMI) of 45.0 to 49.9 in adult (CMS/HCC); Scalp lesion; Newly diagnosed diabetes (CMS/HCC) 05/17/2024 Travel 05/07/2024 Patient Outreach [facility] [address] [place] [address] Macarena Haider MD Pre-visit Planning ((Unable to reach for PVP screening, LVM)) 03/29/2024 Telephone [facility] [address] [place] [address] Macarena Haider MD telephone call from Last 3 Months Immunizations Name Administration Dates Next Due Influenza injectable quadriv alent IIV4 with preservative 02/10/2018 Moderna Covid-19 Vaccine 1210/28/2021 Family History Medical History Relation Name Comments Hypertension Mother Relation Name Status Comments Mother Social History Tobacco Use Types Packs/Day Years Used Date Smoking Tobacco: Never Passive Smoke Exposure: Never Smokeless Tobacco: Never Tobacco Cessation:Counseling Given: Not Answered Alcohol Use Standard Drinks/Week Comments Never 0 (1 standard drink = 0.6 oz pur e alcohol) Depression Answer Date Recorded Patient Health Questionnaire-9 Score 0 05/17/2024 Patient Health Questionnaire-9 Score 0 05/17/2024 Last PHQ-9: Questionnaire Data Not on file 0 05/17/2024 Housing Stability Answer Date Recorded What is [...] Date Recorded Patient Health Questionnaire-2 Score 0 05/17/2024 Comments Unknown Sex and Gender Information Value Date Recorded Sex Assigned at Female 02/22/2022 10:34 AM EDT Legal Sex Female 10:34 AM EDT Gender Identity Female 02/22/2022 10:34 AM EDT Sexual Orientation Straight 02/22/2022 10 :34 AM EDT Last Filed Vital Signs Vital Sign Reading Time Taken Comments Blood Pressure 136/73 05/17/2024 9:50 AM EST Pulse 66 05/17/2024 9:50 AM EST Temperature 36.1 ??C (97 ??F) 05/17/2024 9:50 AM EST Respiratory Rate 20 05/17/2024 9:50 AM EST Oxygen Saturation 98% 05/17/2024 9:50 AM EST Inhaled Oxygen Concentration - - Weight 101 kg (223 lb 9.6 oz) 05/17/2024 9:50 AM EST Height 149.9 cm (4' 11 ) 05/17/2024 9:50 AM EST Body Mass Index 45.16 05/17/2024 9:50 AM EST Plan of Treatment Upcoming Encounters Date Type Department Care Team (Late st Contact Info) Description 07/05/2024 11:30 AM EDT Telemedicine [facility] [address] [place] [address] Macarena Haider MD [address] [place] [address] Health Maintenance Due Date Last Done Comments Diabetes: Foot Exam 01/01/1994 Alcohol/Substance Use Screening 1996 Family Planning (PISQ) 01/01/1999 Hepatitis C Screening 01/01/2002 DTaP/Tdap/Td Vaccines (1 - Tdap) 01/01/2003 Diabetes: Urine Protein Screening 01/01/2003 Hepatitis B Vaccines (1 of 3 - 19+ 3-dose series) 01/01/2003 Pneumococcal Vaccine: Pediatrics (0 to 5 Years) and At-Risk Patients (6 to 49) Years) (1 of 2 - PCV) 01/01/2003 Pap Smear 02/05/2023 02/06/2020 COVID-19 Vaccine ( - season) 2023 10/28/2021, 09/26/2020, 08/29/2020 Influenza Vaccine (#1) 2023 02/10/2018 Mammogram 2024 SDOH Screening 06/16/2024 06/16/2023 Lipid Panel 09/26/2024 09/27/2023, 06/0 12/2022, 02/15/2022, Additional history exists Diabetes: Hemoglobin A1C 11/14/2024 025, 09/27/2023, 04/28/2023, Additional history exists Cervical Cancer Screening 02/05/2025 HPV/Cotest 02/05/2025 02/06/2020 Eye Exam 05/06/2025 05/06/2023, 04/25, 05/06/2023, Additional history exists Depression Screening 05/17/2025 05/17/2024, 05/17/19 25 Tobacco Screening 05/17/2025 05/17/2024 Zoster Vaccines (1 of 2) 01/01/2034 RSV Patients and Patients Aged 60 years or older (1 - 1-dose 75+ series) 01/01/2059 HIV Screening Completed 01/25/2020 HIB Vaccines Aged Out No longer eligi ble based on patient's age to complete this topic HPV Vaccines Aged Out No longer eligi ble based on patient's age to complete this topic Hepatitis A Vaccines Aged Out No long er eligible based on patient's age to complete this topic IPV Vaccines Aged Out No longer eligi ble based on patient's age to complete this topic Meningococcal Vaccine Aged Out No roosevelt lindy eligible based on patient's age to complete this topic RSV under 20 months Aged Out No longe r eligible based on patient's age to complete this topic Rotavirus Vaccines Aged Out No longer eligible based on patient's age to complete this topic Procedures Procedure Name Priority Date/Time Associated Diagnosis Comments POCT GLYCATED HEMOGLOBIN, TOTAL Routine 05/17/2024 10:31 AM EST Newly diagnosed diabetes (CMS/HCC) POCT GLUCOSE Routine 05/17/2024 10:30 AM EST Newly diagnosed diabetes (CMS/HCC) LIPID PANEL, STANDARD Routine 09/27/2023 10:35 AM EDT Prediabetes HPV MRNA E6/E7 Routine 02/06/2020 8:44 AM EDT THINPREP IMAGING SYSTEM PAP Routine 02/06/2020 8:44 AM EDT ZZZ HISTORICAL HIV 1 GENOTYPE Routine 01/25/2020 2:23 PM EDT from Last 3 Months or Most Recently Relevant to Health Maintenance Results * (ABNORMAL) POCT HGB A1C (05/17/2024 10:31 AM EST) Hemoglobin A1C 6.5(A) 4.0 - 6.0 % QC Media Lot # [id number] Lot# Expiration Date Blood 05/17/2024 10:3 1 AM EST Macarena Quevedo MD POINT OF CARE TEST EN TER/EDIT ORDERABLES Final Result * POCT Glucose (05/17/2024 10:30 AM EST) Glucose Blood, POC 114 60 - 200 mg/dL QC Media Lot # [id number] Lot# Expiration Date Blood Capillary blood specimen / Unknown 05/17/2024 10:30 AM EST Macarena Quevedo MD POINT OF CARE TEST EN TER/EDIT ORDERABLES Final Result * (ABNORMAL) Lipid Panel, Standard (09/27/2023 10:35 AM EDT) Triglycerides 227(H) <150 mg/dL [facility] Comment:Desirable Triglyceri de: less than 150 mg/dLBorderline High Triglyceride 150-199 mg/dLHigh Triglyceride: 200-499 mg/dLVery High Triglyceride: greater than or equal to 5OO mg/dL Cholesterol 284(H) <200 mg/dL [facility] Comment:Desirable Cholestero l: less than 200 mg/dLBorderline High Cholesterol: 200-239 mg/dLHigh Cholesterol: greater than 239 mg/dL LDL Cholesterol Calculated 195(H) <100 mg/dL [facility] Comment:Desirable LDL: less than 100 mg/dLNear Optimal/Above Optimal LDL: 110- 129 mg/dLBorderline High LDL: 130-159 mg/dLHigh LDL: 160-189 mg/dLVery High LDL: greater than or equal to 190 mg/dL HDL Cholesterol 44 >40 mg/dL [facility] Comment:Desirable HDL: great er than 40 mg/dL Note: This HDL assay may give artificially low results in patients with liver disease. Blood Venous blood specimen / Unknown 09/27/2023 10:35 AM EDT 09/27/2023 12:08 PM EDT Macarena Quevedo MD LAB BLOOD ORDERABLES Final Result [facility] [address] [place] [phone] * THINPREP TIS PAP (02/06/2020 8:44 AM EDT) Clinical Information: SEE COMMENT [facility] Comment:None given COMMENT [facility]MENT [facility] Comment: EXPLANATORY NOTE: ? The Pap is a screening test for cervical cancer. It is ?? not a diagnostic test and is subject to false negative ?? and false positive results. It is most reliable when a ?? satisfactory sample, regularly obtained, is submitted ?? with relevant clinical findings and history, and when ?? the Pap result is evaluated along with historic and ?? current clinical information. ?? COMMENT: [facility] Comment: This Pap test has been evaluated with computer assisted technology. Pediatric Dietician: SEE COMMENT [facility] Comment: SXA, CT(ASCP) CT screening location: [address] ??[id number] Interpretation/Resu lt: SEE COMMENT [facility] Comment:Negative for intraep ithelial lesion or malignancy. LMP: [facility] Comment:NONE GIVEN Prev. BX: NONE GIVEN [facility] Prev. PAP: SEE COMMENT [facility] Comment:NONE GIVEN SOURCE: [facility]MENT [facility] Comment:None given Statement Of Adequacy: [facility] Comment: Satisfactory for evaluation. Endocervical/transformation zone component present. Age and/or menstrual status not provided 02/06/2020 8:44 AM EDT Historical Provider MD LAB PATHOLOGY ORDERABLES Final Result Performing Organization Address [facility] de Phone Number [facility] [address] * HPV mRNA E6/E7 (02/06/2020 8:44 AM EDT) Pathologist [facility] HPV nRNA E6/E7 Not Detected Not Detected [facility] Comment: This test was performed using the APTIMA HPV Assay ([employer] ?? This assay detects E6/E7 viral messenger RNA (mRNA) from 14 high-risk HPV types (16,18,31,33,35,39,45,51,52,56,58,59,66,68). ?? The analytical performance characteristics of this assay have been determined by [employer] The modifications have not been cleared or approved by the FDA. This assay has been validated pursuant to the CLIA regulations and is used for clinical purposes. NO COLLECTION DATE RECEIVED. WE HAVE USED THE DATE THE SPECIMEN WAS RECEIVED BY THIS LABORATORY THE COLLECTION DATE. IF THIS IS INCORRECT, PLEASE CONTACT CLIENT SERVICES. PHONE NUMBER: ?? 02/06/2020 8:44 AM EDT Historical Provider MD LAB BLOOD ORDERABLES Allyson l Result Performing Organization Address [facility] de Phone Number [facility] [address] [place] [address], * HIV 1 GENOTYPE (01/25/2020 2:23 PM EDT) Pathologist [facility] HIV 1 GENOTYPE NOT DETECTED [facility] Comment: We are unable to obtain a Genotype from this sample. The most common reasons for failure to genotype are insufficient viral load, mutations in the viral genome at the assay priming sites, and presence of inhibitory substance in the sample. Please correlate this result with any recent viral load for this patient and resubmit if clinically warranted. A minimum viral load of 400 copies/mL is required for testing. HIV Subtype: NOT DETERMINED Antiretroviral drugs ?Resistance ??Mutations Detected ? Predicted ? ! ?? ! ? NRTIs ? ! ?? ! ZDV (zidovudine or Retrovir) ?!N/A! ABC (abacavir or Ziagen) ?!N/A! ddI (didanosine or Videx) ? !N/A! 3TC (lamivudine or Epivir) ?!N/A! FTC (emtricitabine or Emtriva) ??!N/A! d4T (stavudine or Zerit) ?!N/A! TDF (tenofovir or Viread) ? !N/A! !___! ? ! ?? ! ? NNRTIs ?! ?? ! ETR (etravirine or Intelence) ?? !N/A! EFV (efavirenz or Sustiva) ?!N/A! NVP (nevirapine or Viramune) ?!N/A! RPV (rilpivirine or Edurant) ?!N/A! HUAM (doravirine or Pifeltro) ?!N/A! !___! ? ! ?? ! ? PIs ? ! ?? ! FPV (fos-amprenavir or Lexiva) ??!N/A! IDV (indinavir or Crixivan) ? !N/A! NFV (nelfinavir or Viracept) ?!N/A! SQV (saquinavir or Invirase) ?!N/A! LPV (lopinavir or Kaletra) ?!N/A! ATV (atazanavir or Reyataz) ? !N/A! TPV (tipranavir or Aptivus) ? !N/A! DRV (darunavir or Prezista) ? !N/A! ? ! ?? ! !___! PRB = PROBABLE OR EMERGING RESISTANCE OTHER MUTATIONS DETECTED: RT GENE MUTATIONS: N/A MN GENE MUTATIONS: N/A [employer] Apr 2018 Interpretation Algorithm The method used in this test is RT-PCR and sequencing ?? of the HIV-1 polymerase gene. ?? The phrases resistance predicted and probable ?? or emerging resistance refer to the application of ?? the interpretive rules. The FDA has not reviewed all of the interpretive rules used by the laboratory ?? to predict drug resistance. FDA may not currently ?? recognize some of the HIV gene mutations reported as ?? predictive of drug resistance, but the laboratory ?? considers these mutations to be associated with ?? resistance to anti-viral drugs based on current ?? clinical or scientific studies. The test has been ?? validated pursuant to CLIA regulations and is not ?? considered investigational or for research use only. Treatment decisions should be made in consideration of ?? all relevant clinical and laboratory findings and the prescribing information for the drugs. ?? This test was developed and its analytical ?? performance characteristics have been determined by ?? [employer] Infectious Disease. It has not been cleared or approved ??by FDA. This assay has been validated pursuant to the ??CLIA regulations and is used for clinical purposes. 01/25/2020 2:23 PM EDT us Nette Troy MD HISTORICAL/NON ORDERABLE LABS Final Result [facility] [address] from Last 3 Months or Most Recently Relevant to Health Maintenance Insurance [employer] [facility] Care Teams Staff Veterinarian Relationship Specialty Start Date End Date Macarena Haider MD [address] [place] [phone] PCP - General Family Medicine 02/10/18
--- OUTSIDE RECORDS SUMMARY | 2024-06-25 09:48 | XMS_ITS | Encounter Summary ---
Author Organization [employer] [facility] Address [address] 7[address] [place] [address] Care Team Providers Care Grease Man Name Role Phone Macarena Haider MD Primary Care Provide r Encounter Details Date Type Department Care Team (Late st Contact Info) Description 11/15/2022 Orders Only [facility] [address] [place] [address] [phone] Josey Waters LPN Social History Tobacco Use Types Packs/Day [...] Info) Description 07/05/2024 11:30 AM EDT Telemedicine [facility] [address] [place] [address] [phone] Macarena Haider MD [address] [place] [address] [phone] documented as of this encounter Visit Diagnoses Not on filedocumented in this encounter Care Teams Grease Man Relationship Specialty Start Date End Date Macarena Haider MD [address] [place] [address] [phone] PCP - General Family Medicine 02/10/18 documented as of this encounter
== END 2024-06-25 09:07 | disposition home or self-care (01) ==
LOC: HO.MAMMO 09:06
PROVIDERS: PCP Internal Medicine; Visit Provider Internal Medicine
DX: Z12.31 Encounter for screening mammogram for malignant neoplasm of breast (principal)
CPT/HCPCS: 77063; 77067

== ENCOUNTER → 2024-06-25 09:30 | Outpatient (BNV) | payer SELFPAY | PROVIDERS: PCP Internal Medicine; Visit Provider Internal Medicine | DX: Z12.31 Encounter for screening mammogram for malignant neoplasm of breast (principal) | CPT/HCPCS: 77063; 77067 ==

== ENCOUNTER 2024-08-02 12:37 | Outpatient (REF) | payer MEDICAID, OTHER, SELFPAY ==
--- NOTE | ~2024-08-02 | MM_ITS ---
EXAMINATION: MM DIAGNOSTIC DIGITAL BREAST TOMOSYNTHESIS, RIGHT Limited right breast ultrasound. CLINICAL INFORMATION: Call back from screening for asymmetry in the medial right breast on CC view. COMPARISON: Mammography: Priors on PACS. TECHNIQUE: Digital breast tomosynthesis is performed in both the craniocaudal and mediolateral oblique views along with computer-aided detection (CAD). Synthesized 2D images are generated from the tomosynthesis. FINDINGS: The breasts are heterogeneously dense, which may obscure small masses (ACR BI-RADS breast composition Category c). The previously seen asymmetry in the medial right breast on CC view posterior depth is not persist on additional imaging projections and likely represented overlapping breast tissue. There are no significant masses, abnormal calcifications, or other abnormalities. Targeted color Doppler ultrasound scanning in the medial breast from 1-4 o'clock demonstrates normal fibronodular breast tissue. There is an incidental hypoechoic oval circumscribed solid mass versus complicated cyst at 1:00 4 cm from nipple measuring 3 x 2 x 4 mm. There is no internal vascular flow. MM/MM tomosynthesis diagnostic RT IMPRESSION: 1. Incidental hypoechoic oval solid mass versus complicated cyst measuring 4 mm at 1:00 4 7 m from nipple. Recommend 6 month follow-up ultrasound for further evaluation of stability. 2. Previously seen asymmetry did not Persist and no other sonographic abnormality was seen to correlate. ASSESSMENT: BI-RADS BI-RADS 3 - Probably benign finding(s) - 6 month follow-up suggested RECOMMENDATION: 6 Month F/U Results were provided to the patient at time of visit by the technologist. This patient's information was entered into a reminder system with a target due date for their next mammogram. Electronically signed by: Krystal May DO 08/03/2024 03:20 PM EDT
--- OUTSIDE RECORDS SUMMARY | 2024-08-02 15:03 | XMS_ITS | Encounter Summary ---
Author Organization [employer] [facility] Address [address] [place] [address] Care Team Providers Care Maintenance And Utilities Supervisor Name Role Phone Macarena Haider MD Primary Care Provide r Encounter Details Date Type Department Care Team (Late st Contact Info) Description 11/15/2022 Orders Only [facility] [address] [place], [place] [phone] Josey Waters LPN Social History Tobacco Use [...] as of this encounter Plan of Treatment Not on file documented as of this encounter Visit Diagnoses Not on filedocumented in this encounter Care Teams Maintenance And Utilities Supervisor Relationship Specialty Start Date End Date Macarena Haider MD [address] [place], [place] [phone] PCP - General Family Medicine 02/10/18 documented as of this encounter
--- OUTSIDE RECORDS SUMMARY | 2024-08-02 15:03 | XMS_ITS | Referral Summary ---
Author Organization [facility] Address [address] [place] [phone] Care Team Providers Care Banking Analyst Name Role Phone Macarena Haider MD Primary [...] Plan of Treatment Not on file Insurance [facility] HS/FREE CARE Care Teams Banking Analyst Relationship Specialty Start Date End Date Macarena Haider MD [address] [place] [phone] PCP - General Internal Medicine 09/30/23
--- OUTSIDE RECORDS SUMMARY | 2024-08-02 15:03 | XMS_ITS | Encounter Summary ---
Author Organization [employer] Address [address] [facility] 7t [place] [address] Care Team Providers Care Special Police Name Role Phone Macarena Haider MD Primary Care Provide r Encounter Details Date Type Department Care Team (Late st Contact Info) Description 02/29/2024 Orders Only [facility] [address] [place] [address] ProviderReyna MD Social History Tobacco Use Types [...] on file documented as of this encounter Procedures Procedure [...] documented as of this encounter Care Teams Special Police Relationship Specialty Start Date End Date Macarena Haider MD [address] [place] [phone] PCP - General Family Medicine 02/10/18 documented as of this encounter
--- OUTSIDE RECORDS SUMMARY | 2024-08-02 15:03 | XMS_ITS | Encounter Summary ---
Author Organization [email or web address] Address [address] [place] [address] Care Team Providers Care Certified Residential Medication Aide Name Role Phone Macarena Haider MD Primary Care Provide r Encounter Details Date Type Department Care Team (Late st Contact Info) Description 12/23/2022 Orders Only [facility] [address] [place] [address] Nancy Morillo LPN Social History Tobacco Use [...] on filedocumented in this encounter Care Teams Certified Residential Medication Aide Relationship Specialty Start Date End Date Macarena Haider MD [address] [place] [phone] PCP - General Family Medicine 02/10/18 documented as of this encounter
--- OUTSIDE RECORDS SUMMARY | 2024-08-02 15:03 | XMS_ITS | Clinical Summary ---
Author Organization [facility] Address [address] [id number] Care Team Providers Care Health Officer Name Role Phone Macarena Haider MD Primary [...] (2 - 2023-2 5 season) 2023 10/28/2021 Alcohol/Substance Use Screening 04/25/2024 Influenza Vaccine (Season Ended) 2024 02/11/20 18 RSV Vaccine (60+ years old a nd patients) (1 - 1-dose 75+ series) 01/01/2059 Pneumococcal Vaccine: Pediat bekah (0-5 Years) and At-Risk Patients (6-50 Years) Aged Out No longer eligible b ased on patient's age to complete this topic Insurance [facility] HSNO/FREE CARE Care Teams Health Officer Relationship Specialty Start Date End Date Macarena Haider MD [address] [place] [phone] PCP - General Internal Medicine 09/30/23
--- OUTSIDE RECORDS SUMMARY | 2024-08-02 15:03 | XMS_ITS | Clinical Summary ---
Author Organization [employer] Address [address] [place] [address] Care Team Providers Care Health Policy Nurse Name Role Phone Macarena Haider MD Primary Care Provide r Allergies No known active allergies Medications atorvastatin (Lipitor) 20 MG tablet Take 1 tablet by mouth at bed time. 05/18/19 19 Active FREESTYLE LITE test strip USE DIRECTED TO TEST BLOOD SUGAR TWICE DAILY 100 strip 11 09/28/19 24 Active TRUEplus Lancets 33G misc USE DIRECTED TO TEST BLOOD SUGAR TWICE DAILY 100 each 09/28/19 24 Active metFORMIN XR (Glucophage-XR) 500 MG 24 hr tabletIndicatio ns:Prediabetes TAKE 1 TABLET BY MOUTH EVERY EVENING WITH DINNER DO NOT BREAK, CRUSH, DISSOLVE OR CHEW 90 tablet 2 10/31/19 24 Active Vitamin D High Potency 25 MCG (1000 UT) capsule TAKE 1 CAPSULE BY MOUTH EVERY DAY 90 capsule 2 10/31/19 24 Active Alcohol Swabs (Alcohol Prep) 70 % pads 1 each 2 times daily. USE TWICE DAILY 100 each 11 12/01/19 24 Active ferrous sulfate (FeroSul) 325 (65 Fe) MG tabletIndicatio ns:Microcytic anemia TAKE 1 TABLET BY MOUTH EVERY DAY WITH BREAKFAST. DO NOT BREAK, CRUSH, DISSOLVE OR CHEW. 90 tablet 1 12/20/19 24 Active ibuprofen 800 MG tabletIndicatio ns:Chronic sore throat,Chronic bilateral low back pain with left-sided sciatica TAKE 1 TABLET BY MOUTH THREE TIMES DAILY WITH FOOD 60 tablet 1 03/20/20 24 Active Tirzepatide-Clakr ght Management (Zepbound) 2.5 MG/0.5ML solution auto-injectorIn dications:Class 3 severe obesity due to excess calories with serious comorbidity and body mass index (BMI) of 45.0 to 49.9 in adult ([facility]) Inject 0.5 mL (2.5 mg) under the skin 1 (one) time per week. 2 mL 07/06/19 25 Active phentermine 37.5 MG capsuleIndicati ons:Class 3 severe obesity due to excess calories with serious comorbidity and body mass index (BMI) of 45.0 to 49.9 in adult ([facility]) Take 1 capsule (37.5 mg) by mouth before breakfast. 30 capsule 05/17/19 25 025 Discontinued Active Problems Problem Noted Date Diagnosed Date Encounter for screening mamm ogram for malignant neoplasm of breast 05/17/2024 Allergies 05/17/2024 Precordial pain 05/17/2024 Class 3 severe obesity due t o excess calories with serious comorbidity and body mass index (BMI) of 45.0 to 49.9 in adult 05/17/2024 Assessment & Plan (07/05/2024 12:10 PM EDT): Patient did not tolerate phentermine, for this reason I will prescribe for her Zepbound 2.5 mg weekly, it is my medical opinion patient will benefit from this medication to lose weight and also to control her recently diagnosed diabetes Assessment & Plan (05/17/2024 11:58 AM EST): [...] be check Patient will be refer to [facility] Metrorrhagia 12/29/2022 Vitamin D deficiency 12/24/2022 Chronic [...] Encounters Date Type Department Care Team Description 07/11/[address] [phone] Macarena Haider MD 07/10/[address] [phone] Elena Sanchez LPN 07/05/2024 11:30 AM EDT Telemedicine [address] [phone] Macarena Haider MD Class 3 severe obesity due to excess calories with serious comorbidity and body mass index (BMI) of 45.0 to 49.9 in adult ([facility]) (Primary Dx) 07/05/2024 Travel 05/18/[address] [address] Macarena Haider MD Prior Authorization ( [place] Request: Phentermine) 05/17/2024 10:00 AM EST Office Visit [address] [address] Macarena Haider MD Encounter for screening mammogram for malignant neoplasm of breast (Primary Dx); Allergy, initial encounter; Precordial pain; Class 3 severe obesity due to excess calories with serious comorbidity and body mass index (BMI) of 45.0 to 49.9 in adult ([facility]); Scalp lesion; Newly diagnosed diabetes ([facility]) 05/17/2024 Travel 05/07/2024 Patient Outreach [address] [address] Macarena Haider MD Pre-visit Planning ((Unable to reach for PVP screening, LVM)) from Last 3 Months Immunizations Name Administration Dates Next Due Influenza injectable quadriv alent IIV4 with preservative 02/10/2018 Moderna Covid-19 Vaccine 12+ 10/28/2021 Family History Medical History Relation Name Comments [...] 05/17/2024 9:50 AM EST Plan of Treatment Health Maintenance Due Date [...] 01/01/2003 Pap Smear 02/05/2023 02/06/2020 COVID-19 Vaccine (2023- season) 2023 10/28/2021, 09/26/2020, 08/29/2020 Influenza Vaccine (#1) 2023 02/10/2018 SDOH Screening 06/16/2024 06/16/2023 Lipid Panel 09/26/2024 09/27/2023, 06/12/2022, 02/15/2022, Additional history exists Diabetes: Hemoglobin A1C 11/14/2024 025, 09/27/2023, 04/28/2023, Additional history exists Cervical Cancer Screening 02/05/2025 HPV/Cotest 02/05/2025 02/06/2020 Eye Exam 05/06/2025 05/06/2023, 04/25, 05/06/2023, Additional history exists Depression Screening 05/17/2025 05/17/2024, 05/17/19 25 Tobacco Screening 05/17/2025 05/17/2024 Mammogram 06/25/2026 06/25/2024 Zoster Vaccines (1 of 2) 01/01/2034 RSV [...] Procedure Name Priority Date/Time Associated Diagnosis Comments BI MAMMOGRAM SCREENING TOMOSYNTHESIS BILATERAL Routine 06/25/2024 9:12 AM EST Encounter for screening mammogram for malignant neoplasm of breast POCT GLYCATED HEMOGLOBIN, TOTAL Routine 05/17/2024 10:31 [...] Recently Relevant to Health Maintenance Results * BI Mammogram Screening Tomosynthesis Bilateral (06/25/2024 9:12 AM EST) Anatomical Region Laterality Modality Breast Bilateral Mammography 06/25/2024 9:12 AM EST Narrative 06/26/2024 4:12 PM EST ? [facility] [place] ? [address] ?[place] [address] ? Mammography Report ? Signed ? Patient: Shook Jones,Abiola ?MR# ?? : [id number] ? : 1985 ?Acct:[id number] ? Age/Sex: 39 / F ?ADM Date: 03/03/25 ? Loc: HO.MAMMO ? Attending Dr: Macarena Quevedo MD ? Ordering Physician: Macarena Haider MD ?Results: 0Incomplete: Needs Additional Imaging ?? Evaluation ? Date of Service: 06/25/24 ?Follow Up: Additional Imagi ?? ng ? Procedure(s): MM tomosynthesis screening BI ?? Accession Number(s): [id number] ? cc: Macarena Haider MD ? EXAMINATION: ?? MM SCREENING DIGITAL BREAST TOMOSYNTHESIS, BILATERAL ? CLINICAL INFORMATION: ? Screening. Asymptomatic. ? COMPARISON: ?? Mammography: Baseline. ? TECHNIQUE: ?? Digital breast mammography with tomosynthesis is performed in both the ?? craniocaudal and mediolateral oblique views along with computer-aided ?? detection (CAD). ? FINDINGS: ?? The breasts are heterogeneously dense, which may obscure small masses ?? (ACR BI-RADS breast composition Category c). ?? Left: ?? There are no significant masses, abnormal calcifications, or other ?? abnormalities. ? Right: ?? Asymmetry with questioned distortion medial breast posterior depth on ?? CC view. ?? No suspicious calcifications or other abnormal findings. ? MM/MM tomosynthesis screening BI ?? IMPRESSION: ?? Additional imaging is recommended ? ASSESSMENT: ? BI-RADS BI-RADS 0 - Incomplete: Needs additional Imaging. ? RECOMMENDATION: ?? 1. Additional views of the right breast. ?? 2. Targeted ultrasound if warranted after review of the additional ?? views. ?? 3. Radiology department staff will contact the patient for additional ?? imaging. ? Additional Imaging required ? This examination should not preclude the clinical evaluation of a ?? suspicious palpable abnormality. ? This patient's information was entered into a reminder system with a ?? target due date for their next mammogram. ? Electronically signed by: ??Krystal May DO ??06/26/2024 04:09 PM EST ? Dictated By: ?Krystal May DO ? Signed By: ?<Electronically signed by Krystal May, DO in OV> ? 06/26/24 1609 ? DD/ 0912 ? TD/TT: 06/25/24 0953 ? Receiving Coordinator: ? Procedure Note Mario Alberto, Charla - 06/26/2024 [facility] [address] [place] [address] Mammography Report Signed Patient: Laurita EscamillaadMR# : [id number] : 1985Acct:[id number] Age/Sex: 39 / FADM Date: 06/25/24 Loc: HO.MAMMO Attending Dr: Macarena Quevedo MD Ordering Physician: Macarena Haider MD Results: 0Incomplete: Needs Additional Imaging Evaluation Date of Service: 06/25/24Follow Up: Additional Imagi ng Procedure(s): MM tomosynthesis screening BI Accession Number(s): [id number] cc: Macarena Haider MD EXAMINATION: MM SCREENING DIGITAL BREAST TOMOSYNTHESIS, BILATERAL CLINICAL INFORMATION: Screening. Asymptomatic. COMPARISON: Mammography: Baseline. TECHNIQUE: Digital breast mammography with tomosynthesis is performed in both the craniocaudal and mediolateral oblique views along with computer-aided detection (CAD). FINDINGS: The breasts are heterogeneously dense, which may obscure small masses (ACR BI-RADS breast composition Category c). Left: There are no significant masses, abnormal calcifications, or other abnormalities. Right: Asymmetry with questioned distortion medial breast posterior depth on CC view. No suspicious calcifications or other abnormal findings. MM/MM tomosynthesis screening BI IMPRESSION: Additional imaging is recommended ASSESSMENT: BI-RADS BI-RADS 0 - Incomplete: Needs additional Imaging. RECOMMENDATION: 1. Additional views of the right breast. 2. Targeted ultrasound if warranted after review of the additional views. 3. Radiology department staff will contact the patient for additional imaging. Additional Imaging required This examination should not preclude the clinical evaluation of a suspicious palpable abnormality. This patient's information was entered into a reminder system with a target due date for their next mammogram. Electronically signed by: Krystal May DO 06/26/2024 04:09 PM EST Dictated By: Krystal May DO Signed By: <Electronically signed by Krystal May DO in OV> 06/26/24 1609 DD/ 0912 TD/TT: 06/25/24 0953 Receiving Coordinator: Macarena Quevedo MD IMG BI PROCEDURES Fin al Result * (ABNORMAL) POCT HGB A1C (05/17/2024 10:31 AM EST) Pathologist [facility] Hemoglobin A1C 6.5(A) 4.0 - 6.0 % QC Media Lot # [id number] Lot# Expiration Date Blood 05/17/2024 10:3 1 AM EST Macarena Quevedo MD POINT OF CARE TEST EN TER/EDIT ORDERABLES Final Result * POCT Glucose (05/17/2024 10:30 AM EST) Glucose Blood, POC 114 60 - 200 mg/dL QC Media Lot # [id number] Lot# Expiration Date [id number] Blood Capillary blood specimen / Unknown 05/17/2024 10:30 AM EST us Macarena Quevedo MD POINT OF CARE TEST EN TER/EDIT ORDERABLES Final Result * (ABNORMAL) Lipid Panel, Standard (09/27/2023 10:35 AM EDT) [facility] Triglycerides 227(H) <150 mg/dL [facility] Comment:Desirable Triglyceri de: less than 150 mg/dLBorderline High Triglyceride 150-199 mg/dLHigh Triglyceride: 200-499 mg/dLVery High Triglyceride: greater than or equal to 5OO mg/dL Cholesterol 284(H) <200 mg/dL [facility] Comment:Desirable Cholestero l: less than 200 mg/dLBorderline High Cholesterol: 200-239 mg/dLHigh Cholesterol: greater than 239 mg/dL LDL Cholesterol Calculated 195(H) <100 mg/dL [facility] Comment:Desirable LDL: less than 100 mg/dLNear Optimal/Above Optimal LDL: 110- 129 mg/dLBorderline High LDL: 130-159 mg/dLHigh LDL: 160-189 mg/dLVery High LDL: greater than or equal to 190 mg/dL HDL Cholesterol 44 >40 mg/dL [facility] Comment:Desirable HDL: great er than 40 mg/dL Note: This HDL assay may give artificially low results in patients with liver disease. Blood Venous blood specimen / Unknown 09/27/2023 10:35 AM EDT 09/27/2023 12:08 PM EDT us Macarena Quevedo MD LAB BLOOD ORDERABLES Final Result [facility] [address] [place] [address] [phone] * THINPREP TIS PAP (02/06/2020 8:44 AM EDT) Clinical Information: [facility] Comment:None given COMMENT SEE COMMENT [...] has been evaluated with computer assisted technology. Biology Faculty Member: [facility] Comment: SXA, CT(ASCP) CT screening location: [address] ??[id number] Interpretation/Resu lt: [facility] Comment:Negative for intraep ithelial lesion [...] status not provided 02/06/2020 8:44 AM EDT us Historical Provider MD LAB PATHOLOGY ORDERABLES Final Result [facility] [address] * HPV mRNA E6/E7 (02/06/2020 8:44 AM EDT) HPV nRNA E6/E7 Not Detected Not Detected [facility] Comment: This test was performed using the APTIMA HPV Assay ([employer] ?? This assay detects E6/E7 viral messenger RNA (mRNA) from 14 high-risk HPV types (16,18,31,33,35,39,45,51,52,56,58,59,66,68). ?? The analytical performance characteristics of this assay have been determined by [employer]. The modifications have not been cleared or approved by the FDA. This assay has been validated pursuant to the CLIA regulations and is used for clinical purposes. NO COLLECTION DATE RECEIVED. WE HAVE USED THE DATE THE SPECIMEN WAS RECEIVED BY THIS LABORATORY THE COLLECTION DATE. IF THIS IS INCORRECT, PLEASE CONTACT CLIENT SERVICES. PHONE NUMBER: ?? 02/06/2020 8:44 AM EDT us Historical Provider LAB BLOOD ORDERABLES Allyson dominguez Result [facility] [address] * HIV 1 GENOTYPE (01/25/2020 2:23 PM EDT) [facility] HIV 1 GENOTYPE NOT DETECTED [facility] Comment: We are unable to [...] Viramune) ?!N/A! RPV (rilpivirine or Edurant) ?!N/A! HUMA (doravirine or Pifeltro) ?!N/A! !___! ? ! [...] OTHER MUTATIONS DETECTED: RT GENE MUTATIONS: N/A DE GENE MUTATIONS: N/A [facility] Apr 2018 Interpretation Algorithm The method [...] performance characteristics have been determined by ?? [employer] [facility] Infectious Disease. It has not been cleared or approved ??by FDA. This assay has been validated pursuant to the ??CLIA regulations and is used for clinical purposes. 01/25/2020 2:23 PM EDT Nette Troy MD HISTORICAL/NON ORDERABLE LABS Final Result [facility] [address] from Last 3 Months or Most Recently Relevant to Health Maintenance Insurance [facility] Care Teams Health Policy Nurse Relationship Specialty Start Date End Date Macarena Haider MD [address] [place] [phone] PCP - General Family Medicine 02/10/18
--- OUTSIDE RECORDS SUMMARY | 2024-08-02 15:03 | XMS_ITS | Encounter Summary ---
Author Organization [facility] Address [address] [place] [address] Care Team Providers Care Sales Support Specialist Name Role Phone Macarena Haider MD Primary Care Provide r Encounter Details Date Type Department Care Team (Latest Contact Info) Description 10/03/2018 Abstract [facility] CONVERSIONS Dental, Provider, DDS Social History Tobacco [...] on filedocumented in this encounter Care Teams Sales Support Specialist Relationship Specialty Start Date End Date Macarena Haider MD [address] [place] [phone] PCP - General Family Medicine 02/10/18 documented as of this encounter
== END 2024-08-02 12:38 | disposition home or self-care (01) ==
LOC: HO.MAMMO 12:37
PROVIDERS: PCP Internal Medicine; Visit Provider Internal Medicine
DX: N64.89 Other specified disorders of breast (principal)
CPT/HCPCS: 76642; 77061; 77065

== ENCOUNTER → 2024-08-02 14:30 | Outpatient (BNV) | payer SELFPAY | PROVIDERS: PCP Internal Medicine; Visit Provider Internal Medicine | DX: R92.8 Other abnormal and inconclusive findings on diagnostic imaging of breast (principal) | CPT/HCPCS: 76642; 77061; 77065 ==

== ENCOUNTER 2025-02-06 12:10 | Outpatient (REF) | payer MEDICAID, OTHER, SELFPAY ==
--- NOTE | ~2025-02-06 | US_ITS ---
EXAMINATION: US DIAGNOSTIC ULTRASOUND BREAST, RIGHT CLINICAL INFORMATION: 6 month follow-up ultrasound for solid mass versus complicated cyst in the right breast at 1:00 4 cm from the nipple.. COMPARISON: Comparison is made with relevant prior imaging. TECHNIQUE: Ultrasound of the breast is performed with real-time joel scale imaging and color Doppler. FINDINGS: Targeted color Doppler ultrasound scanning in the right breast from 12-2 o'clock demonstrates normal fibronodular breast tissue. The previously seen solid mass versus complicated cyst at 1:00 is no longer seen and only normal fibronodular breast tissue is seen. Results are discussed with the patient at time of visit. US/US Breast RT Limited Mamm Only IMPRESSION: Normal fibronodular breast tissue in the right breast on ultrasound from 12-2 o'clock. ASSESSMENT: BI-RADS 1: Negative RECOMMENDATION: Routine annual mammography screening. This patient's information was entered into a reminder system with a target due date for their next mammogram. Electronically signed by: Krystal May DO 02/06/2025 01:15 PM EDT
--- OUTSIDE RECORDS SUMMARY | 2025-02-06 15:25 | XMS_ITS | Clinical Summary ---
Author Organization [employer] Address [address] [place] [address] Care Team Providers Care Seed Tester Name Role Phone Macarena Haider MD Primary Care Provide r Allergies No known active allergies Medications atorvastatin (Lipitor) 20 MG tablet Take 1 tablet by mouth at bed time. 9 Active Alcohol Swabs (Alcohol Prep) 70 % pads 1 each 2 times daily. USE TWICE DAILY 100 each 11 4 Active Tirzepatide-Weig ht Management (Zepbound) 2.5 MG/0.5ML solution auto-injectorInd ications:Class 3 severe obesity due to excess calories with serious comorbidity and body mass index (BMI) of 45.0 to 49.9 in adult (HCC) Inject 0.5 mL (2.5 mg) under the skin 1 (one) time per week. 2 mL 5 Active ibuprofen 800 MG tabletIndication s:Chronic sore throat,Chronic bilateral low back pain with left-sided sciatica TAKE 1 TABLET BY MOUTH THREE TIMES DAILY WITH FOOD 60 tablet 1 5 Active Ferrous Sulfate (iron) 325 (65 Fe) MG tabletIndication s:Microcytic anemia TAKE 1 TABLET BY MOUTH EVERY DAY WITH BREAKFAST. DO NOT BREAK, CRUSH, DISSOLVE OR CHEW. 90 tablet 2 5 Active metFORMIN XR (Glucophage-XR) 500 MG 24 hr tabletIndication s:Prediabetes TAKE 1 TABLET BY MOUTH EVERY EVENING WITH DINNER. DO NOT BREAK, CRUSH, DISSOLVE OR CHEW. 90 tablet 2 5 Active D3-1000 25 MCG (1000 UT) capsule TAKE 1 CAPSULE BY MOUTH EVERY DAY 90 capsule 2 Active TRUEplus Lancets 33G misc Inject 1 each under the skin 2 times daily. USE DIRECTED TO TEST BLOOD SUGAR TWICE DAILY 100 each Active glucose blood (FREESTYLE LITE) test strip USE DIRECTED TO TEST BLOOD SUGAR TWICE DAILY 100 strip Active Hospital, Clinic, or Other Facility Administered Medication Ordered Dose Route Frequency Start Date End Date Status lidocaine (Xylocaine) 2 % injection 20 mgIndications:[place] sm of uncertain behavior 20 mg INFILTRATION Once 01/11/2025 01/11/2025 Ended Active Problems Problem Noted Date Diagnosed Date [...] be check Patient will be refer to BODY COVERER Metrorrhagia 12/29/2022 Vitamin D deficiency 12/24/2022 Chronic [...] Encounters Date Type Department Care Team Description 02/01/2025 Results Follow-Up [facility] [address] [place] [address] Aide Mcgraw RN Dermatopathology Report 01/16/2025 Orders Only [facility] [address] [place] [address] ProviderReyna MD 01/11/2025 11:30 AM EDT Office Visit [facility] [address] [place] [address] Sha Barnes MD Intradermal nevus (Primary Dx); 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 I have travis anderson 02/07/[address] you [...] Sign Reading Time Taken Comments Blood Pressure 104/76 01/11/2025 10:50 AM EDT Pulse 61 01/11/2025 10:50 AM EDT Temperature 36 C (96.8 F) 01/11/2025 10:50 AM EDT Respiratory Rate 18 01/11/2025 10:50 AM EDT Oxygen Saturation 99% 01/11/2025 10:50 AM EDT Inhaled Oxygen Concentration - - Weight 102 kg (224 lb) 01/11/2025 10:50 AM EDT Height 149.9 cm (4' 11 ) 05/17/2024 9:50 AM EST Body Mass Index 45.24 05/17/2024 9:50 AM EST Plan of Treatment Health Maintenance Due Date Last Done Comments Disability Screening 1984 Diabetes: Foot Exam 01/01/1994 Alcohol/Substance Use Screening 1996 Family Planning (PISQ) 01/01/1999 HPV Vaccines (1 - 3-dose series) 01/01/1999 Hepatitis C Screening 01/01/2002 DTaP/Tdap/Td Vaccines (1 - Tdap) 01/01/2003 Diabetes: Urine Protein Screening 01/01/2003 Hepatitis B Vaccines (1 of 3 - 19+ 3-dose series) 01/01/2003 Pneumococcal Vaccine: Pediatrics (0 to 5 Years) and At-Risk Patients (6 to 49) Years (1 of 2 - PCV) 01/01/2003 SDOH Screening 06/16/2024 06/16/2023 Lipid Panel 09/26/2024 09/27/2023, 06/0 12/2022, 02/15/2022, Additional history exists Diabetes: Hemoglobin A1C 11/14/2024 025, 09/27/2023, 04/28/2023, Additional history exists COVID-19 Vaccine ( season) 2024 10/28/2021, 09/26/2020, 08/29/2020 Influenza Vaccine (#1) 2024 02/10/2018 Diagnostic Breast Imaging 02/01/20252024, 08/02/2024, 08/02/2024 Cervical Cancer Screening 02/05/2025 HPV/Cotest 02/05/2025 02/06/2020 Pap Smear 02/05/2025 02/06/2020 Eye Exam 05/06/2025 05/06/2023, 04/25, 05/06/2023, Additional history exists Depression Screening 05/17/2025 05/17/2024, 05/17/19 Tobacco Screening 01/11/2026 01/11/2025 Zoster Vaccines (1 of 2) 01/01/2034 RSV [...] patient's age to complete this topic Meningococcal B Vaccine Aged Out No l onger eligible based on patient's age to complete [...] Name Priority Date/Time Associated Diagnosis Comments BI US BREAST LIMITED RIGHT Routine 02/06/2025 12:37 PM EDT DERMATOPATHOLOGY REPORT Routine 01/12/20 3:38 PM EDT POCT GLYCATED HEMOGLOBIN, TOTAL Routine 05/17/2024 10:31 AM EST Newly diagnosed diabetes (CMS/HCC) LIPID PANEL, STANDARD Routine 09/27/2023 10:35 AM EDT Prediabetes HPV MRNA E6/E7 Routine 02/06/2020 8:44 AM EDT THINPREP IMAGING SYSTEM PAP Routine 02/06/2020 8:44 AM EDT ZZZ HISTORICAL HIV 1 GENOTYPE Routine 01/25/2020 2:23 PM EDT from Last 3 Months or Most Recently Relevant to Health Maintenance Results * BI US Breast Limited Right (02/06/2025 12:37 PM EDT) Anatomical Region Laterality Modality Breast Right Ultrasound 02/06/2025 12:3 7 PM EDT Narrative 02/06/2025 1:18 PM EDT [facility] [address] [place] [address] Ultrasound Report Signed Patient: Abiola Escamilla MR# : [id number] : 1985 Acct:[id number] Age/Sex: 40 / F ADM Date: 02/06/25 Loc: HO.MAMMO Attending Dr: Macarena Quevedo MD Ordering Physician: Macarena Haider MD Date of Service: 02/06/25 Procedure(s): US Breast RT Limited Mamm Only Accession Number(s): [id number] cc: Macarena Haider MD Reason for Exam: RT BR 6MO F/U DENSITY EXAMINATION: US DIAGNOSTIC ULTRASOUND BREAST, RIGHT CLINICAL INFORMATION: 6 month follow-up ultrasound for solid mass versus complicated cyst in the right breast at 1:00 4 cm from the nipple.. COMPARISON: Comparison is made with relevant prior imaging. TECHNIQUE: Ultrasound of the breast is performed with real-time joel scale imaging and color Doppler. FINDINGS: Targeted color Doppler ultrasound scanning in the right breast from 12-2 o'clock demonstrates normal fibronodular breast tissue. The previously seen solid mass versus complicated cyst at 1:00 is no longer seen and only normal fibronodular breast tissue is seen. Results are discussed with the patient at time of visit. US/US Breast RT Limited Mamm Only IMPRESSION: Normal fibronodular breast tissue in the right breast on ultrasound from 12-2 o'clock. ASSESSMENT: BI-RADS 1: Negative RECOMMENDATION: Routine annual mammography screening. This patient's information was entered into a reminder system with a target due date for their next mammogram. Electronically signed by: Krystal May DO 02/06/2025 01:15 PM EDT RP Dictated By: Krystal May DO Signed By: <Electronically signed by Krystal May DO in OV> 02/06/25 1315 DD/ 1237 TD/TT: 02/06/25 1302 Set Up Mechanic Automatic Line: Procedure Note Donotuseinterpreter, Image - 02/06/[facility] [address] [place] [address] Ultrasound Report Signed Patient: Laurita EscamillaadMR# : [id number] : 1985Acct:[id number] Age/Sex: 40 / FADM Date: 02/06/25 Loc: HO.MAMMO Attending Dr: Macarena Quevedo MD Ordering Physician: Macarena Haider MD Date of Service: 02/06/25 Procedure(s): US Breast RT Limited Mamm Only Accession Number(s): [id number] cc: Macarena Haider MD Reason for Exam: RT BR 6MO F/U DENSITY EXAMINATION: US DIAGNOSTIC ULTRASOUND BREAST, RIGHT CLINICAL INFORMATION: 6 month follow-up ultrasound for solid mass versus complicated cyst in the right breast at 1:00 4 cm from the nipple.. COMPARISON: Comparison is made with relevant prior imaging. TECHNIQUE: Ultrasound of the breast is performed with real-time joel scale imaging and color Doppler. FINDINGS: Targeted color Doppler ultrasound scanning in the right breast from 12-2 o'clock demonstrates normal fibronodular breast tissue. The previously seen solid mass versus complicated cyst at 1:00 is no longer seen and only normal fibronodular breast tissue is seen. Results are discussed with the patient at time of visit. US/US Breast RT Limited Mamm Only IMPRESSION: Normal fibronodular breast tissue in the right breast on ultrasound from 12-2 o'clock. ASSESSMENT: BI-RADS 1: Negative RECOMMENDATION: Routine annual mammography screening. This patient's information was entered into a reminder system with a target due date for their next mammogram. Electronically signed by: Krystal May DO 02/06/2025 01:15 PM EDT RP Dictated By: Krystal May DO Signed By: <Electronically signed by Krystal May DO in OV> 02/06/25 1315 DD/ 1237 TD/TT: 02/06/25 1302 Set Up Mechanic Automatic Line: us Macarena Quevedo MD IMG US PROCEDURES Fin al Result * Dermatopathology Report (01/11/2025 3:38 PM EDT) us Historical Provider LAB BLOOD ORDERABLES Allyson l Result * (ABNORMAL) POCT HGB A1C (05/17/2024 10:31 AM EST) Hemoglobin A1C 6.5(A) 4.0 - 6.0 % QC Media Lot # [id number] Lot# Expiration Date ,824,[id number] Blood 05/17/2024 10:3 1 AM EST us Macarena Quevedo MD POINT OF CARE TEST EN TER/EDIT ORDERABLES Final Result * (ABNORMAL) Lipid Panel, Standard (09/27/2023 10:35 AM EDT) Triglycerides 227(H) <150 mg/dL [facility] Comment:Desirable Triglyceri de: less than 150 mg/dLBorderline High Triglyceride 150-199 mg/dLHigh Triglyceride: 200-499 mg/dLVery High Triglyceride: greater than or equal to 5OO mg/dL Cholesterol 284(H) <200 mg/dL [facility] Comment:Desirable Cholestero l: less than 200 mg/dLBorderline High Cholesterol: 200-239 mg/dLHigh Cholesterol: greater than 239 mg/dL LDL Cholesterol Calculated 195(H) <100 mg/dL [facility] Comment:Desirable LDL: less than 100 mg/dLNear Optimal/Above Optimal LDL: 110- 129 mg/dLBorderline High LDL: 130-159 mg/dLHigh LDL: 160-189 mg/dLVery High LDL: greater than or equal to 190 mg/dL HDL Cholesterol 44 >40 mg/dL [facility] Comment:Desirable HDL: great er than 40 mg/dL Note: This HDL assay may give artificially low results in patients with liver disease. Blood Venous blood specimen / Unknown 09/27/2023 10:35 AM EDT 09/27/2023 12:08 PM EDT us Macarena Quevedo MD LAB BLOOD ORDERABLES Final Result [facility] [address] [place] [phone] * THINPREP TIS PAP (02/06/2020 8:44 AM EDT) Clinical Information: SEE COMMENT [facility] Comment:None given COMMENT SEE COMMENT [facility] Comment: EXPLANATORY NOTE: The Pap is a screening test for cervical cancer. It is not a diagnostic test and is subject to false negative and false positive results. It is most reliable when a satisfactory sample, regularly obtained, is submitted with relevant clinical findings and history, and when the Pap result is evaluated along with historic and current clinical information. COMMENT: SEE COMMENT [facility] Comment: This Pap test has been evaluated with computer assisted technology. Neuroscientist: SEE COMMENT [facility] Comment: SXA, CT(ASCP) CT screening location: [address] [address] Interpretation/Resu lt: SEE COMMENT [facility] Comment:Negative for intraep ithelial lesion or malignancy. LMP: SEE COMMENT [facility] Comment:NONE GIVEN Prev. BX: NONE GIVEN [facility] Prev. PAP: SEE COMMENT [facility] Comment:NONE GIVEN SOURCE: SEE COMMENT [facility] Comment:None given Statement Of Adequacy: SEE COMMENT [facility] Comment: Satisfactory for evaluation. Endocervical/transformation zone component present. Age and/or menstrual status not provided 02/06/2020 8:44 AM EDT Historical Provider MD LAB PATHOLOGY ORDERABLES Final Result Performing Organization Address [facility] de Phone Number [facility] [address] * HPV mRNA E6/E7 (02/06/2020 8:44 AM EDT) Pathologist [facility] HPV nRNA E6/E7 Not Detected Not Detected [facility] Comment: This test was performed using the APTIMA HPV Assay ([employer] This assay detects E6/E7 viral messenger RNA (mRNA) from 14 high-risk HPV types (16,18,31,33,35,39,45,51,52,56,58,59,66,68). The analytical performance characteristics of this assay have been determined by [employer]. The modifications have not been cleared or approved by the FDA. This assay has been validated pursuant to the CLIA regulations and is used for clinical purposes. NO COLLECTION DATE RECEIVED. WE HAVE USED THE DATE THE SPECIMEN WAS RECEIVED BY THIS LABORATORY THE COLLECTION DATE. IF THIS IS INCORRECT, PLEASE CONTACT CLIENT SERVICES. PHONE NUMBER: 02/06/2020 8:44 AM EDT [facility] Provider MD LAB BLOOD ORDERABLES Allyson l Result Performing Organization Address [facility] de Phone Number [facility] [address] * HIV 1 GENOTYPE (01/25/2020 2:23 PM EDT) Pathologist [facility] HIV 1 GENOTYPE NOT DETECTED [facility] Comment: We are unable to [...] testing. HIV Subtype: NOT DETERMINED Antiretroviral drugs Resistance Mutations Detected Predicted ! ! NRTIs ! ! ZDV (zidovudine or Retrovir) !N/A! ABC (abacavir or Ziagen) !N/A! ddI (didanosine or Videx) !N/A! 3TC (lamivudine or Epivir) !N/A! FTC (emtricitabine or Emtriva) !N/A! d4T (stavudine or Zerit) !N/A! TDF (tenofovir or Viread) !N/A! !___! ! ! NNRTIs ! ! ETR (etravirine or Intelence) !N/A! EFV (efavirenz or Sustiva) !N/A! NVP (nevirapine or Viramune) !N/A! RPV (rilpivirine or Edurant) !N/A! HUMA (doravirine or Pifeltro) !N/A! !___! ! ! PIs ! ! FPV (fos-amprenavir or Lexiva) !N/A! IDV (indinavir or Crixivan) !N/A! NFV (nelfinavir or Viracept) !N/A! SQV (saquinavir or Invirase) !N/A! LPV (lopinavir or Kaletra) !N/A! ATV (atazanavir or Reyataz) !N/A! TPV (tipranavir or Aptivus) !N/A! DRV (darunavir or Prezista) !N/A! ! ! !___! PRB = PROBABLE OR EMERGING RESISTANCE OTHER MUTATIONS DETECTED: RT GENE MUTATIONS: N/A RI GENE MUTATIONS: N/A The [employer] Apr 2018 Interpretation Algorithm The method used in this test is RT-PCR and sequencing of the HIV-1 polymerase gene. The phrases resistance predicted and probable or emerging resistance refer to the application of the interpretive rules. The FDA has not reviewed all of the interpretive rules used by the laboratory to predict drug resistance. FDA may not currently recognize some of the HIV gene mutations reported as predictive of drug resistance, but the laboratory considers these mutations to be associated with resistance to anti-viral drugs based on current clinical or scientific studies. The test has been validated pursuant to CLIA regulations and is not considered investigational or for research use only. Treatment decisions should be made in consideration of all relevant clinical and laboratory findings and the prescribing information for the drugs. This test was developed and its analytical performance characteristics have been determined by [employer] [facility]. It has not been cleared or approved by FDA. This assay has been validated pursuant to the CLIA regulations and is used for clinical purposes. 01/25/2020 2:23 PM EDT us Nette Troy MD HISTORICAL/NON ORDERABLE LABS Final Result [facility] [address] from Last 3 Months or Most Recently Relevant to Health Maintenance Insurance [place], [place] HSN FULL [facility] * Guarantor: Boone Jones Abiola Account Type Relation to Patient Date of Phone Billing Address Personal/Family Self [place], [place] * Guarantor: Boone Jones Abiola Account Type Relation to Patient Date of Phone Billing Address Personal/Family Self [place], [place] * Guarantor: Abiola Escamilla Account Type Relation to Patient Date of Phone Billing Address Personal/Family Self [place], [place] Care Teams Seed Tester Relationship Specialty Start Date End Date Macarena Haider MD [address] [place] [id number] PCP - General Family Medicine 02/10/18
--- OUTSIDE RECORDS SUMMARY | 2025-02-06 15:25 | XMS_ITS | Encounter Summary ---
Author Organization [employer] Address [address] [place] [address] Care Team Providers Care Aviation Consultant Name Role Phone Macarena Haider MD Primary Care Provide r Reason for Visit * Reason Onset Date Comments Results 02/01/2025 Encounter Details Date Type Department Care Team (Latest Contact Info) Description 02/01/2025 Results Follow-Up [facility] [address] [place] [address] Aide Mcgraw, RN [address] [place] [address] Dermatopathology Report Social History Tobacco Use Types Packs/Day Years [...] AM EDT documented as of this encounter Miscellaneous Notes * Telephone Encounter - Aide Mcgraw RN - 02/01/2025 1:36 PM EDT TC placed to patient [phone] via [employer] (Nette #[id number]) in regards to below message. Patient verbalized understanding. Patient to f/u PRN. ----- Message from Sha Barnes MD sent at 02/01/2025 12:59 PM EDT ----- Normal benign skin biopsy. ----- Message ----- From: Aide Mcgraw RN Sent: 01/16/2025 4:22 PM EDT To: Sha Barnes MD ----- Message ----- From: Mojgan Chiang Sent: 01/16/2025 3:39 PM EDT To: Macarena Quevedo MD A new document has been added to this order with description DERMATOPATHOLOGY RESULTS 01/11/25. documented in this encounter Plan of Treatment Not on file documented as of this encounter Visit Diagnoses Not on filedocumented in this encounter Additional Health Concerns Assessment Noted Time PHQ-9 Depression Total Score: 0 05/17/19 9:50 AM EST documented as of this encounter Care Teams Aviation Consultant Relationship Specialty Start Date End Date Macarena Haider MD [address] [place] [address] PCP - General Family Medicine 02/10/18 documented as of this encounter
--- OUTSIDE RECORDS SUMMARY | 2025-02-06 15:25 | XMS_ITS | Encounter Summary ---
Author Organization [employer] Address [address] [facility] 7t [place] [address] Care Team Providers Care Lead Rider Name Role Phone Macarena Haider MD Primary Care Provide r Encounter Details Date Type Department Care Team (Late st Contact Info) Description 02/29/2024 Orders Only [facility] [address] [place] [address] Provider, MD Reyna Social History Tobacco Use Types Packs/Day Years [...] documented as of this encounter Care Teams Lead Rider Relationship Specialty Start Date End Date Macarena Haider MD [address] [place] [address] PCP - General Family Medicine 02/10/18 documented as of this encounter
--- OUTSIDE RECORDS SUMMARY | 2025-02-06 15:25 | XMS_ITS | Encounter Summary ---
Author Organization [facility] Address [address] [facility] [address]t [place] [address] Care Team Providers Care Shipping Room Supervisor Name Role Phone Macarena Haider MD [...] on filedocumented in this encounter Care Teams Shipping Room Supervisor Relationship Specialty Start Date End Date Macarena Haider MD [address] [place] [id number] PCP - General Family Medicine 02/10/18 documented as of this encounter
--- OUTSIDE RECORDS SUMMARY | 2025-02-06 15:25 | XMS_ITS | Encounter Summary ---
Author Organization [employer] Address [address] [facility] 7t [place] [address] Care Team Providers Care Electric Blanket Packer Name Role Phone Macarena Haider MD Primary Care Provide r Encounter Details Date Type Department Care Team (Late st Contact Info) Description 01/16/2025 Orders Only [facility] [address] [place] [address] Provider, MD Reyna Social History Tobacco Use [...] t he electric, gas, oil or water [employer] threatened to shut off services in your [...] DERMATOPATHOLOGY REPORT Routine 01/12/20 3:38 PM EDT documented in this encounter Results * BI US Breast Limited Right (02/06/2025 12:37 PM EDT) Anatomical Region Laterality Modality Breast Right Ultrasound 02/06/2025 12:3 7 PM EDT Narrative 02/06/2025 1:18 PM EDT [address] [place] [address] Ultrasound Report Signed Patient: Abiola Escamilla MR# : [id number] : 1985 Acct:[id number] Age/Sex: 40 / F ADM Date: 02/06/25 Loc: HO.MAMMO Attending Dr: Macarena Quevedo MD Ordering Physician: Macarena Haider MD Date of Service: 02/06/25 Procedure(s): US Breast RT Limited Mamm Only Accession Number(s): [id number] cc: Macarena Haider MD Reason for Exam: [...] 02/06/25 1315 DD/ 1237 TD/TT: 02/06/25 1302 Shape Carver: Procedure Note Donotuseinterpreter, Image - 02/06/2025 [facility] [address] [place] [address] Ultrasound Report Signed Patient: Laurita EscamillaadMR# : [id number] : 1985Acct:[id number] Age/Sex: 40 / FADM Date: 02/06/25 Loc: HO.MAMMO Attending Dr: Macarena Quevedo MD Ordering Physician: Macarena Haider MD Date of Service: 02/06/25 Procedure(s): US Breast RT Limited Mamm Only Accession Number(s): [id number] cc: Macarena Haider MD Reason for Exam: [...] May DO 02/06/2025 01:15 PM EDT RP Workstation: [employer] Dictated By: Krystal May DO Signed By: <Electronically signed by Krystal May DO in OV> 02/06/25 1315 DD/ 1237 TD/TT: 02/06/25 1302 Shape Carver: us Macarena Quevedo MD IMG US PROCEDURES Fin al Result * Dermatopathology Report (01/11/2025 3:38 PM EDT) us Historical Provider LAB BLOOD ORDERABLES Allyson l Result documented in this encounter Visit Diagnoses Not on filedocumented in this encounter Additional Health Concerns Assessment Noted Time PHQ-9 Depression Total Score: 0 05/17/19 25 9:50 AM EST documented as of this encounter Care Teams Electric Blanket Packer Relationship Specialty Start Date End Date Macarena Haider MD [address] [place] [phone] PCP - General Family Medicine 02/10/18 documented as of this encounter
--- OUTSIDE RECORDS SUMMARY | 2025-02-06 15:26 | XMS_ITS | Clinical Summary ---
Author Organization [facility] Address [address] [place] [address] Care Team Providers Care Photographer Still Name Role Phone Macarena Haider MD Primary [...] Health Maintenance Due Date Last Done Comments HIV Screening 1985 Varicella Vaccines (1 of 2 - 13+ 2-dose series) 01/01/1997 Hepatitis B Vaccines (1 of 3 - 19+ 3-dose series) 01/01/2003 DTaP,Tdap,and Td Vaccines (1 - Tdap) 01/01/2006 Alcohol/Substance Use Screening 04/25/2024 COVID-19 Vaccine (2 - 2024-2 6 season) 2024 10/28/2021 Influenza Vaccine (#1) 2024 02/10/2018 RSV Vaccine (60+ years old a nd patients) (1 - 1-dose 75+ series) 01/01/2059 Pneumococcal Vaccine: Pediat bekah (0-5 Years) and At-Risk Patients (6-50 Years) Aged Out No longer eligible b ased on patient's age to complete this topic Insurance [facility] HSNO/FREE CARE Care Teams Photographer Still Relationship Specialty Start Date End Date Macarena Haider MD [address] [place] [phone] PCP - General Internal Medicine 09/30/23
--- OUTSIDE RECORDS SUMMARY | 2025-02-06 15:26 | XMS_ITS | Encounter Summary ---
Author Organization [employer] [facility] Address [address] [place] [address] Care Team Providers Care Horse Riding Coach Or Instructor Name Role Phone Macarena Haider MD Primary Care Provide r Encounter Details Date Type Department Care Team (Late st Contact Info) Description 11/15/2022 Orders Only [facility] MEDICINE [address] [place], [place] [id number] Josey Waters LPN Social History Tobacco Use [...] on filedocumented in this encounter Care Teams Horse Riding Coach Or Instructor Relationship Specialty Start Date End Date Macarena Haider MD [address] [place], [place] [phone] PCP - General Family Medicine 02/10/18 documented as of this encounter
--- OUTSIDE RECORDS SUMMARY | 2025-02-06 15:26 | XMS_ITS | Encounter Summary ---
Author Organization [employer] Address [address] [facility] [address] [place] [address] Care Team Providers Care General Dentist Name Role Phone Macarena Haider MD Primary Care Provide r Encounter Details Date Type Department Care Team (Late st Contact Info) Description 12/23/[address] [facility] [address] [place] [address] Nancy Morillo LPN Social History Tobacco Use [...] on filedocumented in this encounter Care Teams General Dentist Relationship Specialty Start Date End Date Macarena Haider MD [address] [place] [id number] PCP - General Family Medicine 02/10/18 documented as of this encounter
== END 2025-02-06 12:11 | disposition home or self-care (01) ==
LOC: HO.MAMMO 12:10
PROVIDERS: PCP Internal Medicine; Visit Provider Internal Medicine
DX: R92.2 Inconclusive mammogram (principal)
CPT/HCPCS: 76642

== ENCOUNTER → 2025-02-06 12:30 | Outpatient (BNV) | payer MEDICAID, SELFPAY | PROVIDERS: PCP Internal Medicine; Visit Provider Internal Medicine | DX: R92.331 Mammographic heterogeneous density, right breast (principal) | CPT/HCPCS: 76642 ==